=== PATIENT | female | born 1985 | race Caucasian/White ===

== ENCOUNTER 2018-01-13 07:01 | Inpatient (IN) | payer BC ==
[2018-01-13] MEDS ORDERED: Ondansetron 4 MG/2 ML SDV IVPUSH PRN ×2 (08:12→11:15)
[2018-01-13] MEDS ORDERED: Nalbuphine 20 MG/1 ML Amp IVPUSH PRN (08:12)
[2018-01-13] MEDS ORDERED: Sodium Chloride 0.9% 10 ML Syringe FLUSH PRN (08:12)
--- NOTE | 2018-01-13 10:43 | PCM.LDHP ---
L&D History of Present Illness - General Date of Service: 01/13/18 Admit Problem/Dx: Patient Status Order with Admit Dx/Problem 01/13/18 08:12 Patient Status [ADT] Routine Admission Diagnosis/Problem Admission Diagnosis/Problem Normal DATE OF ADMISSION: 01/13/2018 ADMISSION DIAGNOSES: A 40 and 4/7th week intrauterine , elective induction of labor HISTORY OF PRESENT ILLNESS: This patient is a 32 year old, 2, para 1-0-0-1 female who was admitted at 40 and 4/7ths weeks gestational age with an ASHANTI of 01/09/2018 for elective induction of labor. She is Rh negative and will require Rhogam administration. LIBRARY SERIALS ASSISTANT HISTORY: 3, para 1-0-0-1. The patient has an ASHANTI of 01/09/2018 as confirmed by early ultrasound dating performed at 11 and 2/7ths weeks. LMP was unknown due to lack of monthly menses, but was achieved by IVF and expected ASHANTI initially set by horse show manager. Patient was not using any control at the time of conception. A second ultrasound was performed on 2017 at 21 weeks which was consistent with previously set ASHANTI. The patient was first seen for care on 06/19/2018 at 10 and 6/7ths weeks gestational age. She was seen on a regular basis throughout the duration of the . Her weight gain was approximately 16 pounds, starting with a pregravid weight of 154 pounds and with a recorded weight of 170 pounds at the last visit. Her vital signs have remained stable throughout the and fundal height growth has been appropriate. The patient declined genetic testing. She plans on . She is group B Strep negative. She plans on doing a natural labor. She is Rh negative. PAST OBSTETRIC HISTORY: Male born on 09/26/2012 at 41 weeks gestational age after 12 hours of labor - 7 pounds, 3 ounces - via normal spontaneous vaginal delivery with the use of an epidural. Child's name is Jesse. LABORATORY TESTING: Initial testing shows blood to be O negative with a negative antibody screen. Hemoglobin at first visit was 13.5 g/dL and platelets at 240,000. Pap smear was normal. Rubella titer showed immunity. RPR was nonreactive. Urine culture was negative. HIV and Hepatitis B assays were both negative. Chlamydia and gonorrhea assays were both negative. Second trimester testing showed hemoglobin to be 11.7 g/dL and platelets at 211,000. Her 1 hour GGT was normal at 87. Group B Strep screen was negative. ALLERGIES: Penicillin - resulting in hives CURRENT MEDICATIONS: 1. vitamins x1 daily 2. Calcium 600 mg x1 daily 3. Zantac 150 Maximum Strength tablets x1 daily 4. Vitamin D3 2000 Units x1 daily 5. DHA [place] 3 100 mg x1 daily PAST MEDICAL HISTORY: 1. Vaginal delivery x1 2. Unknown infertility 3. History of ASCUS seen on pap in 2015 PAST SURGICAL HISTORY: 1. IVF extraction in 2017 FAMILY HISTORY: Mother is alive and healthy. Father is alive and healthy. One sibling is alive and healthy. MGM is secondary to Alzheimers. MGF has dementia and a history of a CVA. PGM is secondary to Alzheimers. PGF is alive and healthy. No bleeding, clotting, anesthesia, or problems noted in the family. Father of baby has a niece born with an atrial septal defect. SOCIAL HISTORY: The patient is . is Musa Juarez. They live in [place], [place]. She is a college graduate and works at [employer]. She does not use alcohol, drugs, or tobacco. REVIEW OF SYSTEMS: GENERAL: Patient is doing well. Baby has been active. No concerns at this time. SKIN: Negative. CARDIOVASCULAR: No chest pain or exercise intolerance. RESPIRATORY: No shortness of breath or infectious symptoms. BREASTS: Changes associated with . Patient plans to breastfeed. GASTROINTESTINAL: Negative. GENITOURINARY: Changes associated with . MUSCULOSKELETAL: Negative. NEUROLOGIC: Negative. PHYSICAL EXAMINATION: GENERAL: Patient is a well-developed, well-nourished, pleasant female who appears her stated age and in no acute distress. VITAL SIGNS: Blood pressure on last evaluation in the clinic was 108/65, weight was 170.2 after a weight gain of 16 pounds throughout the . heart rate was 147. Height is 5 feet, 2 inches. SKIN: Warm and dry without lesions. HEENT, NECK, BACK: Within normal limits. CARDIOVASCULAR: Regular rate and rhythm without murmurs. RESPIRATORY: Clear with good breath sounds in all lung ribera. BREASTS: Deferred at this time having been done at initial obstetric visit and found to be normal. ABDOMEN: Protuberant with with a fundal height of 39 cm. Baby is in vertex presentation by Agapito maneuvers. GENITAL: Shows cervix to be 3-4cm, 90% effaced, soft, -2 station, and mid position. EXTREMITIES: Shows trace edema to be present. NEUROLOGIC: Grossly within normal limits. ASSESSMENT: 1. A 40 and 4/7ths week intrauterine who presents to L and D for elective induction of labor. 2. Rh negative. Negative antibodies on blood screen. Rhogam administered on . 3. Group B Strep screen is negative. 4. The patient plans to breastfeed. 5. Rubella titer shows immunity. 6. The patient desires a natural labor. PLAN: 1. Artificial rupture of membranes and Pitocin induction of labor. 2. Consider administration of Rhogam after delivery as per protocol. 3. Support decision. 4. Natural labor or pain control as desired by the patient. - Related Data Allergies/Adverse Reactions: Allergies Allergy/AdvReac Type Severity Reaction Status Date / Time Penicillins Allergy Rash Verified 09/21/15 14:07 Past Medical History LIBRARY SERIALS ASSISTANT History: Reports: Social & Family History - Family History Family Medical History: Noncontributory - Tobacco Use Smoking Status *Q: Never Smoker Second Hand Smoke Exposure: No - Caffeine Use Caffeine Use: Reports: None - Recreational Drug Use Recreational Drug Use: No H&P Review of Systems - Review of Systems: Review Of Systems: See Below L&D Exam - Exam Exam: See Below - Vital Signs Vital Signs: Last Vital Signs Temp 98.9 F 01/13/18 08:12 Pulse 94 01/13/18 08:12 Resp 16 01/13/18 08:12 BP 113/77 01/13/18 08:12 Pulse Ox 98 01/13/18 08:12 Weight: 170 lb - Patient Data Lab Results Last 24 hrs: Laboratory Results - last 24 hr 01/13/18 Range/Units 08:00 WBC 9.17 (3.98-10.04) K/mm3 RBC 4.04 (3.98-5.22) M/mm3 Hgb 12.2 (11.2-15.7) gm/L Hct 36.8 (34.1-44.9) % MCV 91.1 (79.4-94.8) fl MCH 30.2 (25.6-32.2) pg MCHC 33.2 (32.2-35.5) g/dl RDW Std Deviation 44.2 (36.4-46.3) fL Plt Count 183 (182-369) K/mm3 MPV 10.4 (9.4-12.3) fl Neut % (Auto) 70.4 (34.0-71.1) % Lymph % (Auto) 19.7 (19.3-51.7) % [place] % (Auto) 8.1 (4.7-12.5) % Eos % (Auto) 0.8 (0.7-5.8) Baso % (Auto) 0.2 (0.1-1.2) % Neut # (Auto) 6.46 H (1.56-6.13) K/mm3 Lymph # (Auto) 1.81 (1.18-3.74) K/mm3 [place] # (Auto) 0.74 H (0.24-0.36) K/mm3 Eos # (Auto) 0.07 (0.04-0.36) K/mm3 Baso # (Auto) 0.02 (0.01-0.08) K/mm3 Result Diagrams: 01/13/18 08:00 Problem List Initiated/Reviewed/Updated: Yes Orders Last 24hrs: Active Orders 24 hr Category Date Time Status Patient Status [ADT] Routine ADT 01/13/18 08:12 Active Activity as Tolerated [RC] PFP Care 01/13/18 08:12 Active Communication Order [RC] ASDIRECTED Care 01/13/18 08:12 Active Notify Provider [RC] PFP Care 01/13/18 08:12 Active Notify Provider [RC] PRN Care 01/13/18 08:12 Active Peripheral IV Care [RC] . DIRECTED Care 01/13/18 08:13 Active Pump Management, Intrathecal [RC] ASDIRECTED Care 01/13/18 08:13 Active Vital Signs [RC] PER UNIT ROUTINE Care 01/13/18 08:12 Active Regular Diet [DIET] Diet 01/13/18 Breakfast Active Lactated Ringers [Ringers, Lactated] 1,000 ml Med 01/13/18 08:15 Active IV ASDIRECTED Lidocaine 1% [Xylocaine 1%] Med 01/13/18 12:00 Once 10 ml INJECT ONETIME ONE Nalbuphine [Nubain] Med 01/13/18 08:12 Active 10 mg IVPUSH Q2H PRN Ondansetron [Zofran] Med 01/13/18 08:12 Active 4 mg IVPUSH Q4H PRN Sodium Chloride 0.9% [Saline Flush] Med 01/13/18 08:12 Active 10 ml FLUSH ASDIRECTED PRN Electronic Heart Tones Ext w TOCO [WOMSER] Oth 01/13/18 08:12 Ordered Routine Electronic Heart Tones Internal [WOMSER] Per Unit Oth 01/13/18 08:12 Ordered Routine Peripheral IV Insertion Adult [OM.PC] Routine Oth 01/13/18 08:12 Ordered Resuscitation Status Routine Resus Stat 01/13/18 08:12 Ordered Medication Orders Lactated Ringer's (Ringers, Lactated) 1,000 mls @ 100 mls/hr IV ASDIRECTED LITZY Lidocaine HCl (Xylocaine 1%) 10 ml INJECT ONETIME ONE Stop: 01/13/18 12:01 Nalbuphine HCl (Nubain) 10 mg IVPUSH Q2H PRN PRN Reason: Pain (moderate 4-6) Ondansetron HCl (Zofran) 4 mg IVPUSH Q4H PRN PRN Reason: Nausea/Vomiting Sodium Chloride (Saline Flush) 10 ml FLUSH ASDIRECTED PRN PRN Reason: Keep Vein Open
[2018-01-13] MEDS ORDERED: Oxytocin/Lactated Ringers 10 UNIT/1,000 ML BAG IV SCH (10:45)
[2018-01-13] MEDS ORDERED: ePHEDrine 50 MG/ML SDV IVPUSH PRN (11:15)
[2018-01-13] MEDS ORDERED: Bupivacaine/fentaNYL/NS 100 ML Bag EPIDUR SCH (11:15)
[2018-01-13] MEDS ORDERED: diphenhydrAMINE 50 MG/ML SDV IVPUSH PRN (11:15)
[2018-01-13] MEDS ORDERED: fentaNYL 100 MCG/2 ML SDV EPIDUR PRN (11:15)
--- NOTE | 2018-01-13 11:27 | PCM.PREANE ---
Preanesthetic Assessment - Anesthesia/Transfusion/Family Hx Anesthesia History: Prior Anesthesia Without Reaction Family History of Anesthesia Reaction: No Transfusion History: No Prior Transfusion(s) - Review of Systems General: No Symptoms Pulmonary: No Symptoms Cardiovascular: No Symptoms Gastrointestinal: No Symptoms Neurological: No Symptoms Other: Reports: None - Physical Assessment O2 Sat by Pulse Oximetry: 98 Respiratory Rate: 16 Vital Signs: Last Vital Signs Temp 37.2 C 01/13/18 08:12 Pulse 94 01/13/18 08:12 Resp 16 01/13/18 08:12 BP 113/77 01/13/18 08:12 Pulse Ox 98 01/13/18 08:12 Height: 1.57 m Weight: 77.111 kg ASA Class: 2 Mental Status: Alert & Oriented x3 Airway Class: Mallampati = 1 Dentition: Reports: Normal Dentition Thyro-Mental Finger Breadths: 3 Mouth Opening Finger Breadths: 3 ROM/Head Extension: Full Lungs: Clear to Auscultation, Normal Respiratory Effort Cardiovascular: Regular Rate, Regular Rhythm - Lab Values: Laboratory Last Values WBC 9.17 K/mm3 (3.98-10.04) 01/13/18 08:00 RBC 4.04 M/mm3 (3.98-5.22) 01/13/18 08:00 Hgb 12.2 gm/L (11.2-15.7) 01/13/18 08:00 Hct 36.8 % (34.1-44.9) 01/13/18 08:00 MCV 91.1 fl (79.4-94.8) 01/13/18 08:00 MCH 30.2 pg (25.6-32.2) 01/13/18 08:00 MCHC 33.2 g/dl (32.2-35.5) 01/13/18 08:00 RDW Std Deviation 44.2 fL (36.4-46.3) 01/13/18 08:00 Plt Count 183 K/mm3 (182-369) 01/13/18 08:00 MPV 10.4 fl (9.4-12.3) 01/13/18 08:00 Neut % (Auto) 70.4 % (34.0-71.1) 01/13/18 08:00 Lymph % (Auto) 19.7 % (19.3-51.7) 01/13/18 08:00 [place] % (Auto) 8.1 % (4.7-12.5) 01/13/18 08:00 Eos % (Auto) 0.8 (0.7-5.8) 01/13/18 08:00 Baso % (Auto) 0.2 % (0.1-1.2) 01/13/18 08:00 Neut # (Auto) 6.46 K/mm3 (1.56-6.13) H 01/13/18 08:00 Lymph # (Auto) 1.81 K/mm3 (1.18-3.74) 01/13/18 08:00 [place] # (Auto) 0.74 K/mm3 (0.24-0.36) H 01/13/18 08:00 Eos # (Auto) 0.07 K/mm3 (0.04-0.36) 01/13/18 08:00 Baso # (Auto) 0.02 K/mm3 (0.01-0.08) 01/13/18 08:00 - Allergies Allergies/Adverse Reactions: Allergies Allergy/AdvReac Type Severity Reaction Status Date / Time Penicillins Allergy Rash Verified 09/21/15 14:07 - Acknowledgements Anesthesia Type Planned: Epidural Pt an Appropriate Candidate for the Planned Anesthesia: Yes Alternatives and Risks of Anesthesia Discussed w Pt/Guardian: Yes Pt/Guardian Understands and Agrees with Anesthesia Plan: Yes PreAnesthesia Questionnaire ACID TENDER History: Reports: - SUBSTANCE USE Smoking Status *Q: Never Smoker Tobacco Use Within Last Twelve Months: No Second Hand Smoke Exposure: No Recreational Drug Use History: No - CURRENT (IN HOUSE) MEDS Current Meds: Current Medications Diphenhydramine HCl (Benadryl) 25 mg IVPUSH Q6H PRN PRN Reason: Pruritis Ephedrine Sulfate (Ephedrine Sulfate) 5 mg IVPUSH ASDIRECTED PRN PRN Reason: Hypotension Fentanyl (Sublimaze) 100 mcg EPIDUR ONETIME PRN PRN Reason: Pain Fentanyl/Bupivacaine HCl (Fentanyl/Bupivacaine/Ns 2 Mcg-0.125% 100 Ml) 100 ml EPIDUR ASDIRECTED LITZY Lactated Ringer's (Ringers, Lactated) 1,000 mls @ 100 mls/hr IV ASDIRECTED LITZY Oxytocin/Lactated Ringer's (Pitocin In Lr 10 Units/1,000 Ml) 10 unit in 1,000 mls @ 12 mls/hr IV TITRATE LITZY; Protocol Lidocaine HCl (Xylocaine 1%) 10 ml INJECT ONETIME ONE Stop: 01/13/18 12:01 Nalbuphine HCl (Nubain) 10 mg IVPUSH Q2H PRN PRN Reason: Pain (moderate 4-6) Ondansetron HCl (Zofran) 4 mg IVPUSH Q4H PRN PRN Reason: Nausea/Vomiting Ondansetron HCl (Zofran) 4 mg IVPUSH ONETIME PRN PRN Reason: Nausea/Vomiting Sodium Chloride (Saline Flush) 10 ml FLUSH ASDIRECTED PRN PRN Reason: Keep Vein Open
[2018-01-13] MEDS: Lactated Ringers 1,000 ML IV SCH ×2 (11:30→14:26)
[2018-01-13] MEDS ORDERED: Lidocaine 1% 50 ML MDV INJECT ONE (12:00)
[2018-01-13] MEDS ORDERED: Bupivacaine 0.25% 10 ML SDV ONE (18:00)
[2018-01-13] MEDS ORDERED: Docusate Sodium 100 MG Cap PO PRN (19:31)
[2018-01-13] MEDS ORDERED: Lanolin 100% Cream 7 GM Tube TOP PRN (19:31)
[2018-01-13] MEDS ORDERED: Acetaminophen 325 MG Tab PO PRN (19:31)
[2018-01-13] MEDS ORDERED: Benzocaine/Menthol 20%-0.5% Spray 56 GM Canister TOP PRN (19:31)
[2018-01-13] MEDS: Misoprostol 200 MCG Tab PO SCH ×2 (19:48→23:39)
[2018-01-13] MEDS: Witch Hazel Medicated Pads 100/Jar TOP PRN (21:20)
[2018-01-13] MEDS: Ibuprofen 600 MG Tab PO PRN (21:21)
[2018-01-14] MEDS: Ibuprofen 600 MG Tab PO PRN ×4 (02:12→21:52)
--- NOTE | 2018-01-14 05:47 | PCM.SN ---
- Free Text/Narrative Note: Delivery note: Jena is a 32-year-old 2 now para 2002 white female was admitted for elective induction of labor on 01/13/2018 at 40-3/7 weeks gestational age. She underwent artificial rupture of membranes with resultant clear fluid. She was augmented with Pitocin somewhat later, made steady progress of dilation and became completely dilated at approximately 1515 hrs. on 01/13/2018. She pushed for approximately 1-1/2 hours. Baby's head was descending in a somewhat asynclitic fashion. Was most probable reason for extended second stage of labor. heart tones were reassuring. She delivered a viable, blackwell, male infant with Apgars of 8 and 9, a weight of 3650 g (8 pounds 0.7 ounces), a length of 21.5 inches a left occiput anterior position. The perineum was intact. The baby was placed on mom's abdomen. The cord was clamped 2 and then was cut by the baby's father Musa. Pitocin was administered through the IV afterwards consulting increased uterine tone and decreased likelihood of bleeding. The umbilical cord had 3 vessels. Cord blood was obtained. Patient had moderate bleeding afterwards and was administered Cytotec 2 doses . Assessment blood loss was 400 mL's. Patient is planning to breast-feed. Condition: Good
--- NOTE | 2018-01-14 08:22 | PCM48HPAN ---
Post Anesthesia Note - EVALUATION WITHIN 48HRS OF ANESTHETIC Vital Signs in Normal Range: Yes Patient Participated in Evaluation: Yes Respiratory Function Stable: Yes Airway Patent: Yes Cardiovascular Function Stable: Yes Hydration Status Stable: Yes Pain Control Satisfactory: Yes Nausea and Vomiting Control Satisfactory: Yes Mental Status Recovered: Yes
[2018-01-14] MEDS: Prenatal Multivitamin with Calcium/Folic Acid/Iron Tab PO SCH (09:59)
[2018-01-14] MEDS: Witch Hazel Medicated Pads 100/Jar TOP PRN (18:12)
--- NOTE | 2018-01-14 19:07 | PCM.PNPP ---
- General Info Admission Dx/Problem (Free Text): 01/14/2018 Post Day #1 Subjective: Patient is doing well. She has tolerated a regular diet and is ambulating without difficulty. Pain is well controlled at this time. Lochia described as a moderate amount of discharge, but improved from last night after Cytotec administration. Patient is . Objective: Vitals: Vital Signs - 24 hr 01/13/18 01/14/18 01/14/18 19:48 02:11 02:14 Temperature 98.1 F 98.1 F 98.1 F Pulse, 82 95 Peripheral Pulse, 96 Peripheral [ Brachial] Respiratory 16 16 16 Rate Blood Pressure 104/66 104/68 Blood Pressure 104/68 [Upper Arm] O2 Sat by Pulse 97 93 L Oximetry Physical Exam General: Alert, oriented and in no acute distress Lungs: Clear to auscultation bilaterally Heart: Regular rate and rhythm Abdomen: Soft, non-distended, nontender, and fundus palpated below the umbilicus Extremities: Trace edema ASSESSMENT: 32-year-old female 2, now para 2-0-0-2 with a normal spontaneous vaginal delivery on 01/13/2018 at 40 and 3/7ths weeks gestational age, day #1 PLAN: Doing well with no concerns at this time Continue breast feeding Lochia appropriate, but continue to monitor bleeding Continue routine care Discharge home tomorrow - Patient Data Vital Signs - Most Recent: Last Vital Signs Temp 98.1 F 01/14/18 02:14 Pulse 96 01/14/18 02:14 Resp 16 01/14/18 02:14 BP 104/68 01/14/18 02:14 Pulse Ox 93 L 01/14/18 02:11 Weight - Most Recent: 170 lb I&O - Last 24 Hours: Intake & Output 01/14/18 01/14/18 01/14/18 06:59 14:59 22:59 Intake Total 2 120 0 Balance 2 120 0 Lab Results - Last 24 Hours: Laboratory Results - last 24 hr 01/13/18 01/14/18 Range/Units 22:04 05:00 WBC 14.66 H (3.98-10.04) K/mm3 RBC 3.24 L (3.98-5.22) M/mm3 Hgb 9.9 L (11.2-15.7) gm/L Hct 29.9 L (34.1-44.9) % MCV 92.3 (79.4-94.8) fl MCH 30.6 (25.6-32.2) pg MCHC 33.1 (32.2-35.5) g/dl RDW Std Deviation 43.6 (36.4-46.3) fL Plt Count 161 L (182-369) K/mm3 MPV 10.5 (9.4-12.3) fl Blood Type O NEGATIVE Gel Antibody Screen Negative Screen 0 ros/5 flds - neg RhIG Candidate? Yes Rhogam Indicated Yes, baby rh pos H Med Orders - Current: Current Medications Acetaminophen (Tylenol) 650 mg PO Q4H PRN PRN Reason: mild pain or fever Benzocaine/Menthol (Dermoplast Pain Relief [place]) 0 gm TOP ASDIRECTED PRN PRN Reason: Perineal Comfort Measure Last Admin: 01/13/18 21:21 Dose: 1 can Docusate Sodium (Colace) 100 mg PO BID PRN PRN Reason: Constipation Emollient Ointment (Lansinoh Hpa) 0 gm TOP ASDIRECTED PRN PRN Reason: Sore Nipples Last Admin: 01/13/18 21:24 Dose: 1 tube Ibuprofen (Motrin) 600 mg PO Q4H PRN PRN Reason: Mild pain or fever Last Admin: 01/14/18 17:55 Dose: 600 mg Prenat Multivit/[place]/Iron/Folic Ac ( Plus Iron) 1 each PO DAILY [facility] Last Admin: 01/14/18 09:59 Dose: 1 each Witch Ese (Tucks) 1 pad TOP ASDIRECTED PRN PRN Reason: Hemorrhoid pain Last Admin: 01/14/18 18:12 Dose: 1 tub Discontinued Medications Diphenhydramine HCl (Benadryl) 25 mg IVPUSH Q6H PRN PRN Reason: Pruritis Ephedrine Sulfate (Ephedrine Sulfate) 5 mg IVPUSH ASDIRECTED PRN PRN Reason: Hypotension Fentanyl (Sublimaze) 100 mcg EPIDUR ONETIME PRN PRN Reason: Pain Last Admin: 01/13/18 14:11 Dose: 100 mcg Fentanyl/Bupivacaine HCl (Fentanyl/Bupivacaine/Ns 2 Mcg-0.125% 100 Ml) 100 ml EPIDUR ASDIRECTED [facility] Last Admin: 01/13/18 14:12 Dose: 100 ml Lactated Ringer's (Ringers, Lactated) 1,000 mls @ 100 mls/hr IV ASDIRECTED LITZY Last Admin: 01/13/18 14:26 Dose: 100 mls/hr Oxytocin/Lactated Ringer's (Pitocin In Lr 10 Units/1,000 Ml) 10 unit in 1,000 mls @ 12 mls/hr IV TITRATE LITZY; Protocol Last Titration: 01/13/18 12:00 Dose: 4 munits/min, 24 mls/hr Lidocaine HCl (Xylocaine 1%) 10 ml INJECT ONETIME ONE Stop: 01/13/18 12:01 Last Admin: 01/13/18 23:26 Dose: Not Given Misoprostol (Cytotec) 400 mcg PO Q4H LITZY Stop: 01/13/18 23:36 Last Admin: 01/13/18 23:39 Dose: 400 mcg Nalbuphine HCl (Nubain) 10 mg IVPUSH Q2H PRN PRN Reason: Pain (moderate 4-6) Ondansetron HCl (Zofran) 4 mg IVPUSH Q4H PRN PRN Reason: Nausea/Vomiting Ondansetron HCl (Zofran) 4 mg IVPUSH ONETIME PRN PRN Reason: Nausea/Vomiting Sodium Chloride (Saline Flush) 10 ml FLUSH ASDIRECTED PRN PRN Reason: Keep Vein Open - Interaction Support Person: - Recovery Exam Fundal Tone: Firm Fundal Level: At Umbilicus Fundal Placement: Midline Lochia Amount: Small, Moderate Lochia Color: Rubra/Red Perineum Description: Intact, Minimal Bruising/Swelling Episiotomy/Laceration: None Bladder Status: Voiding - Problem List Review Problem List Initiated/Reviewed/Updated: Yes
[2018-01-15] MEDS: Ibuprofen 600 MG Tab PO PRN (07:44)
--- NOTE | 2018-01-15 08:24 | PCM.PNPP ---
Addendum entered and electronically signed by EleazarMichael L 01/15/18 08:37: Of note: This note was written on 01/15/2018 and as per the assessment, she is day #2. Original Note: <Michael Bush - Last Filed: 01/15/18 08:16> - General Info Admission Dx/Problem (Free Text): 01/14/2018 Post Day #2 Subjective: Patient is doing well. She has tolerated a regular diet without concern. She is ambulating and showering without difficulty. Pain is well controlled with Ibuprofen at this time. Lochia minimal. Patient describes passage of one large clot last night, but the flow of bright red blood has been appropriate. Patient is without difficulty. Objective: Vitals: Vital Signs 01/15/18 01/15/18 04:38 07:38 Temperature 98.1 F 98.2 F Pulse, 65 Peripheral Respiratory 15 16 Rate Blood Pressure 104/73 101/84 O2 Sat by Pulse 98 Oximetry Physical Exam General: Alert, oriented and in no acute distress Lungs: Clear to auscultation bilaterally Heart: Regular rate and rhythm Abdomen: Soft, non-distended, nontender, and fundus palpated at the umbilicus Extremities: Trace edema ASSESSMENT: 32-year-old female 2, now para 2-0-0-2 with a normal spontaneous vaginal delivery on 01/13/2018 at 40 and 3/7ths weeks gestational age, day #1 PLAN: Doing well with no concerns at this time Continue breast feeding Lochia appropriate, but continue to monitor bleeding Continue routine care Discharge home today, return to clinic in 2 weeks Continue to take vitamins with additional calcium supplementation Consider adding iron supplements to compensate for Hgb of 9.9 g/dL - Patient Data Vital Signs - Most Recent: Last Vital Signs Temp 98.1 F 01/15/18 04:38 Pulse 65 01/15/18 04:38 Resp 15 01/15/18 04:38 BP 104/73 01/15/18 04:38 Pulse Ox 98 01/15/18 04:38 Weight - Most Recent: 77.111 kg I&O - Last 24 Hours: Intake & Output 01/14/18 01/15/18 01/15/18 22:59 06:59 14:59 Intake Total 0 Balance 0 Med Orders - Current: Current Medications Acetaminophen (Tylenol) 650 mg PO Q4H PRN PRN Reason: mild pain or fever Benzocaine/Menthol (Dermoplast Pain Relief [place]) 0 gm TOP ASDIRECTED PRN PRN Reason: Perineal Comfort Measure Last Admin: 01/13/18 21:21 Dose: 1 can Docusate Sodium (Colace) 100 mg PO BID PRN PRN Reason: Constipation Emollient Ointment (Lansinoh Hpa) 0 gm TOP ASDIRECTED PRN PRN Reason: Sore Nipples Last Admin: 01/13/18 21:24 Dose: 1 tube Ibuprofen (Motrin) 600 mg PO Q4H PRN PRN Reason: Mild pain or fever Last Admin: 01/15/18 07:44 Dose: 600 mg Prenat Multivit/[place]/Iron/Folic Ac ( Plus Iron) 1 each PO DAILY [facility] Last Admin: 01/14/18 09:59 Dose: 1 each Witch Ese (Tucks) 1 pad TOP ASDIRECTED PRN PRN Reason: Hemorrhoid pain Last Admin: 01/14/18 18:12 Dose: 1 tub Discontinued Medications Bupivacaine HCl (Sensorcaine-Mpf 0.25%) 10 ml .ROUTE .STK-MED ONE Stop: 01/13/18 18:01 Diphenhydramine HCl (Benadryl) 25 mg IVPUSH Q6H PRN PRN Reason: Pruritis Ephedrine Sulfate (Ephedrine Sulfate) 5 mg IVPUSH ASDIRECTED PRN PRN Reason: Hypotension Fentanyl (Sublimaze) 100 mcg EPIDUR ONETIME PRN PRN Reason: Pain Last Admin: 01/13/18 14:11 Dose: 100 mcg Fentanyl/Bupivacaine HCl (Fentanyl/Bupivacaine/Ns 2 Mcg-0.125% 100 Ml) 100 ml EPIDUR ASDIRECTED [facility] Last Admin: 01/13/18 14:12 Dose: 100 ml Lactated Ringer's (Ringers, Lactated) 1,000 mls @ 100 mls/hr IV ASDIRECTED [facility] Last Admin: 01/13/18 14:26 Dose: 100 mls/hr Oxytocin/Lactated Ringer's (Pitocin In Lr 10 Units/1,000 Ml) 10 unit in 1,000 mls @ 12 mls/hr IV TITRATE [facility]; Protocol Last Titration: 01/13/18 12:00 Dose: 4 munits/min, 24 mls/hr Lidocaine HCl (Xylocaine 1%) 10 ml INJECT ONETIME ONE Stop: 01/13/18 12:01 Last Admin: 01/13/18 23:26 Dose: Not Given Misoprostol (Cytotec) 400 mcg PO Q4H [facility] Stop: 01/13/18 23:36 Last Admin: 01/13/18 23:39 Dose: 400 mcg Nalbuphine HCl (Nubain) 10 mg IVPUSH Q2H PRN PRN Reason: Pain (moderate 4-6) Ondansetron HCl (Zofran) 4 mg IVPUSH Q4H PRN PRN Reason: Nausea/Vomiting Ondansetron HCl (Zofran) 4 mg IVPUSH ONETIME PRN PRN Reason: Nausea/Vomiting Sodium Chloride (Saline Flush) 10 ml FLUSH ASDIRECTED PRN PRN Reason: Keep Vein Open - Interaction Support Person: - Recovery Exam Fundal Tone: Firm Fundal Level: 1 Fingerbreadths Below Umbilicus Fundal Placement: Midline Lochia Amount: Small Lochia Color: Rubra/Red Perineum Description: Intact, Minimal Bruising/Swelling Episiotomy/Laceration: None Bladder Status: Voiding - Problem List Review Problem List Initiated/Reviewed/Updated: Yes <Mahin Lay - Last Filed: 01/15/18 08:50> - General Info Date of Service: 01/15/18 Admission Dx/Problem (Free Text): I have seen and evaluated patient with student and agree with the above note. I have reviewed the addendum is entered by the student and agree with changes made. Patient doing well and anticipate discharge home today. She is return to clinic in 2 weeks or earlier as needed. She should consider iron supplementation for mild anemia. Mahin Lay M.D. 8:50 AM 01/15/2018 Functional Status: Reports: Pain Controlled, Tolerating Diet, Ambulating, Urinating - Patient Data Vital Signs - Most Recent: Last Vital Signs Temp 36.8 C 01/15/18 07:38 Pulse 65 01/15/18 04:38 Resp 16 01/15/18 07:38 BP 101/84 01/15/18 07:38 Pulse Ox 98 01/15/18 04:38 I&O - Last 24 Hours: Intake & Output 01/14/18 01/15/18 01/15/18 22:59 06:59 14:59 Intake Total 120 Balance 120 Med Orders - Current: Current Medications Acetaminophen (Tylenol) 650 mg PO Q4H PRN PRN Reason: mild pain or fever Benzocaine/Menthol (Dermoplast Pain Relief [place]) 0 gm TOP ASDIRECTED PRN PRN Reason: Perineal Comfort Measure Last Admin: 01/13/18 21:21 Dose: 1 can Docusate Sodium (Colace) 100 mg PO BID PRN PRN Reason: Constipation Emollient Ointment (Lansinoh Hpa) 0 gm TOP ASDIRECTED PRN PRN Reason: Sore Nipples Last Admin: 01/13/18 21:24 Dose: 1 tube Ibuprofen (Motrin) 600 mg PO Q4H PRN PRN Reason: Mild pain or fever Last Admin: 01/15/18 07:44 Dose: 600 mg Prenat Multivit/[place]/Iron/Folic Ac ( Plus Iron) 1 each PO DAILY [facility] Last Admin: 01/14/18 09:59 Dose: 1 each Witch Ese (Tucks) 1 pad TOP ASDIRECTED PRN PRN Reason: Hemorrhoid pain Last Admin: 01/14/18 18:12 Dose: 1 tub Discontinued Medications Bupivacaine HCl (Sensorcaine-Mpf 0.25%) 10 ml .ROUTE .STK-MED ONE Stop: 01/13/18 18:01 Diphenhydramine HCl (Benadryl) 25 mg IVPUSH Q6H PRN PRN Reason: Pruritis Ephedrine Sulfate (Ephedrine Sulfate) 5 mg IVPUSH ASDIRECTED PRN PRN Reason: Hypotension Fentanyl (Sublimaze) 100 mcg EPIDUR ONETIME PRN PRN Reason: Pain Last Admin: 01/13/18 14:11 Dose: 100 mcg Fentanyl/Bupivacaine HCl (Fentanyl/Bupivacaine/Ns 2 Mcg-0.125% 100 Ml) 100 ml EPIDUR ASDIRECTED [facility] Last Admin: 01/13/18 14:12 Dose: 100 ml Lactated Ringer's (Ringers, Lactated) 1,000 mls @ 100 mls/hr IV ASDIRECTED [facility] Last Admin: 01/13/18 14:26 Dose: 100 mls/hr Oxytocin/Lactated Ringer's (Pitocin In Lr 10 Units/1,000 Ml) 10 unit in 1,000 mls @ 12 mls/hr IV TITRATE [facility]; Protocol Last Titration: 01/13/18 12:00 Dose: 4 munits/min, 24 mls/hr Lidocaine HCl (Xylocaine 1%) 10 ml INJECT ONETIME ONE Stop: 01/13/18 12:01 Last Admin: 01/13/18 23:26 Dose: Not Given Misoprostol (Cytotec) 400 mcg PO Q4H [facility] Stop: 01/13/18 23:36 Last Admin: 01/13/18 23:39 Dose: 400 mcg Nalbuphine HCl (Nubain) 10 mg IVPUSH Q2H PRN PRN Reason: Pain (moderate 4-6) Ondansetron HCl (Zofran) 4 mg IVPUSH Q4H PRN PRN Reason: Nausea/Vomiting Ondansetron HCl (Zofran) 4 mg IVPUSH ONETIME PRN PRN Reason: Nausea/Vomiting Sodium Chloride (Saline Flush) 10 ml FLUSH ASDIRECTED PRN PRN Reason: Keep Vein Open
--- NOTE | 2018-01-15 09:02 | PCM.DCSUM1 ---
Discharge Summary - Hospital Course Free Text/Narrative:: Delivery note: Jena is a 32-year-old 2 now para 2002 white female was admitted for elective induction of labor on 01/13/2018 at 40-3/7 weeks gestational age. She underwent artificial rupture of membranes with resultant clear fluid. She was augmented with Pitocin somewhat later, made steady progress of dilation and became completely dilated at approximately 1515 hrs. on 01/13/2018. She pushed for approximately 1-1/2 hours. Baby's head was descending in a somewhat asynclitic fashion. Was most probable reason for extended second stage of labor. heart tones were reassuring. She delivered a viable, blackwell, male infant with Apgars of 8 and 9, a weight of 3650 g (8 pounds 0.7 ounces), a length of 21.5 inches a left occiput anterior position. The perineum was intact. The baby was placed on mom's abdomen. The cord was clamped 2 and then was cut by the baby's father Musa. Pitocin was administered through the IV afterwards consulting increased uterine tone and decreased likelihood of bleeding. The umbilical cord had 3 vessels. Cord blood was obtained. Patient had moderate bleeding afterwards and was administered Cytotec 2 doses . Assessment blood loss was 400 mL's. Patient is planning to breast-feed. Condition: Good HPI Initial Comments: Delivery note: Jena is a 32-year-old 2 now para 2002 white female was admitted for elective induction of labor on 01/13/2018 at 40-3/7 weeks gestational age. She underwent artificial rupture of membranes with resultant clear fluid. She was augmented with Pitocin somewhat later, made steady progress of dilation and became completely dilated at approximately 1515 hrs. on 01/13/2018. She pushed for approximately 1-1/2 hours. Baby's head was descending in a somewhat asynclitic fashion. Was most probable reason for extended second stage of labor. heart tones were reassuring. She delivered a viable, blackwell, male infant with Apgars of 8 and 9, a weight of 3650 g (8 pounds 0.7 ounces), a length of 21.5 inches a left occiput anterior position. The perineum was intact. The baby was placed on mom's abdomen. The cord was clamped 2 and then was cut by the baby's father Musa. Pitocin was administered through the IV afterwards consulting increased uterine tone and decreased likelihood of bleeding. The umbilical cord had 3 vessels. Cord blood was obtained. Patient had moderate bleeding afterwards and was administered Cytotec 2 doses . Assessment blood loss was 400 mL's. Patient is planning to breast-feed. Condition: Good Brief History: Delivery note: Jena is a 32-year-old 2 now para 2002 white female was admitted for elective induction of labor on 01/13/2018 at 40-3/7 weeks gestational age. She underwent artificial rupture of membranes with resultant clear fluid. She was augmented with Pitocin somewhat later, made steady progress of dilation and became completely dilated at approximately 1515 hrs. on 01/13/2018. She pushed for approximately 1-1/2 hours. Baby's head was descending in a somewhat asynclitic fashion. Was most probable reason for extended second stage of labor. heart tones were reassuring. She delivered a viable, blackwell, male infant with Apgars of 8 and 9, a weight of 3650 g (8 pounds 0.7 ounces), a length of 21.5 inches a left occiput anterior position. The perineum was intact. The baby was placed on mom's abdomen. The cord was clamped 2 and then was cut by the baby's father Musa. Pitocin was administered through the IV afterwards consulting increased uterine tone and decreased likelihood of bleeding. The umbilical cord had 3 vessels. Cord blood was obtained. Patient had moderate bleeding afterwards and was administered Cytotec 2 doses . Assessment blood loss was 400 mL's. Patient is planning to breast-feed. Condition: Good - Discharge Data Discharge Date: 01/15/18 Discharge Disposition: Home, Self-Care 01 Condition: Good - Discharge Diagnosis/Problem(s) (1) 40 weeks gestation of SNOMED Code(s): 77683033 ICD Code: Z3A.40 - 40 WEEKS GESTATION OF Status: Acute Current Visit: Yes (2) Rh negative state in antepartum period SNOMED Code(s): 210999894 ICD Code: O09.899 - SUPERVISION OF OTHER HIGH RISK PREGNANCIES, UNSP TRIMESTER; Z67.91 - UNSPECIFIED BLOOD TYPE, RH NEGATIVE Status: Acute Current Visit: Yes (3) conceived through in vitro fertilization SNOMED Code(s): 48363388 ICD Code: O09.819 - SUPRVSN OF PREG RSLT FROM ASSISTED REPRODCTV TECH, UNSP TRI Status: Acute Current Visit: Yes (4) Vaginal delivery SNOMED Code(s): 687582208 ICD Code: O80 - ENCOUNTER FOR FULL-TERM UNCOMPLICATED DELIVERY Status: Acute Current Visit: Yes - Patient Summary/Data Complications: None Consults: None Hospital Course: Jena Juarez was admitted for elective induction of labor. On admission her cervix was dilated to 1 cm. She was GBS negative. She was given pitocin for augmentation. She was given an epidural for anesthesia. She had artificial rupture of membranes with clear fluid. She progressed to complete and began pushing. On 01/13/2018 she had a normal vaginal delivery of a live male infant. Apgars of 8 and 9. Weight of 3650 g (8 pounds 0.7 ounces). Her course was uneventful. Her pain was well controlled and she had minimal lochia. She was ambulating, tolerating a regular diet and voiding normally. She was breast feeding. She was afebrile and her hematocrit was 29.9 on day # 1. She desired to be discharged home on the morning of PPD #2. Her blood type is O-. blood type was Rh+ and she received a dose of RhoGAM prior to discharge. - Patient Instructions Diet: Regular Diet as Tolerated Activity: As Tolerated Activity, Other: Nothing in the vagina for 6 weeks Driving: May Drive Today Showering/Bathing: May Shower Notify Provider of: Fever, Increased Pain, Swelling and Redness, Drainage, Nausea and/or Vomiting Other/Special Instructions: Notify office if you have heavy vaginal bleeding enough to soak a pad in less than an hour for 3 hours. - Discharge Plan Home Medications: Home Meds Ferrous Sulfate [Slow Fe] 1 tab PO DAILY 01/13/18 [History] PNV #116/Iron Fumarate/FA/DHA [Expecta Combo Pack] 1 each PO DAILY 12/28 [History] Acetaminophen [Tylenol] 650 mg PO Q6H PRN tablet 01/15/18 [Rx] Benzocaine/Menthol [Dermoplast Pain Relief [place]] 1 spray TOP ASDIRECTED PRN canister 01/15/18 [Rx] Docusate Sodium [Colace] 100 mg PO BID PRN cap 01/15/18 [Rx] Ibuprofen [IJD: Ibuprofen] 600 mg PO Q6H PRN tablet 01/15/18 [Rx] Lanolin [Lansinoh HPA] 1 applic TOP ASDIRECTED PRN tube 01/15/18 [Rx] Patient Handouts: Home Care Instructions for Mom, Vaginal Delivery, Care After Referrals: Aidan Garner MD [Primary Care Provider] - (Follow-up in 2 weeks or earlier as needed.) - Discharge Summary/Plan Comment DC Time >30 min.: No - Patient Data Vitals - Most Recent: Last Vital Signs Temp 36.8 C 01/15/18 07:38 Pulse 65 01/15/18 04:38 Resp 16 01/15/18 07:38 BP 101/84 01/15/18 07:38 Pulse Ox 98 01/15/18 04:38 Weight - Most Recent: 77.111 kg I&O - Last 24 hours: Intake & Output 01/14/18 01/15/18 01/15/18 22:59 06:59 14:59 Intake Total 120 Balance 120 Med Orders - Current: Current Medications Acetaminophen (Tylenol) 650 mg PO Q4H PRN PRN Reason: mild pain or fever Benzocaine/Menthol (Dermoplast Pain Relief [place]) 0 gm TOP ASDIRECTED PRN PRN Reason: Perineal Comfort Measure Last Admin: 01/13/18 21:21 Dose: 1 can Docusate Sodium (Colace) 100 mg PO BID PRN PRN Reason: Constipation Emollient Ointment (Lansinoh Hpa) 0 gm TOP ASDIRECTED PRN PRN Reason: Sore Nipples Last Admin: 01/13/18 21:24 Dose: 1 tube Ibuprofen (Motrin) 600 mg PO Q4H PRN PRN Reason: Mild pain or fever Last Admin: 01/15/18 07:44 Dose: 600 mg Prenat Multivit/[employer]/Iron/Folic Ac ( Plus Iron) 1 each PO DAILY [facility] Last Admin: 01/14/18 09:59 Dose: 1 each Witch Ese (Tucks) 1 pad TOP ASDIRECTED PRN PRN Reason: Hemorrhoid pain Last Admin: 01/14/18 18:12 Dose: 1 tub Discontinued Medications Bupivacaine HCl (Sensorcaine-Mpf 0.25%) 10 ml .ROUTE .STK-MED ONE Stop: 01/13/18 18:01 Diphenhydramine HCl (Benadryl) 25 mg IVPUSH Q6H PRN PRN Reason: Pruritis Ephedrine Sulfate (Ephedrine Sulfate) 5 mg IVPUSH ASDIRECTED PRN PRN Reason: Hypotension Fentanyl (Sublimaze) 100 mcg EPIDUR ONETIME PRN PRN Reason: Pain Last Admin: 01/13/18 14:11 Dose: 100 mcg Fentanyl/Bupivacaine HCl (Fentanyl/Bupivacaine/Ns 2 Mcg-0.125% 100 Ml) 100 ml EPIDUR ASDIRECTED [facility] Last Admin: 01/13/18 14:12 Dose: 100 ml Lactated Ringer's (Ringers, Lactated) 1,000 mls @ 100 mls/hr IV ASDIRECTED [facility] Last Admin: 01/13/18 14:26 Dose: 100 mls/hr Oxytocin/Lactated Ringer's (Pitocin In Lr 10 Units/1,000 Ml) 10 unit in 1,000 mls @ 12 mls/hr IV TITRATE [facility]; Protocol Last Titration: 01/13/18 12:00 Dose: 4 munits/min, 24 mls/hr Lidocaine HCl (Xylocaine 1%) 10 ml INJECT ONETIME ONE Stop: 01/13/18 12:01 Last Admin: 01/13/18 23:26 Dose: Not Given Misoprostol (Cytotec) 400 mcg PO Q4H [facility] Stop: 01/13/18 23:36 Last Admin: 01/13/18 23:39 Dose: 400 mcg Nalbuphine HCl (Nubain) 10 mg IVPUSH Q2H PRN PRN Reason: Pain (moderate 4-6) Ondansetron HCl (Zofran) 4 mg IVPUSH Q4H PRN PRN Reason: Nausea/Vomiting Ondansetron HCl (Zofran) 4 mg IVPUSH ONETIME PRN PRN Reason: Nausea/Vomiting Sodium Chloride (Saline Flush) 10 ml FLUSH ASDIRECTED PRN PRN Reason: Keep Vein Open
[2018-01-15] MEDS: Prenatal Multivitamin with Calcium/Folic Acid/Iron Tab PO SCH (10:16)
== END 2018-01-15 12:39 | disposition home or self-care (01) | DRG 560 ==
LOC: UNDOADMOB 07:01 → JD.OB 07:01 → OBSVTOIN 16:50 → JD.OB 16:50
PROVIDERS: ADMIT Obstetrics & Gynecology; ATTEND Obstetrics & Gynecology
PROC: 10E0XZZ Delivery of Products of Conception, External Approach (ICD-10-PCS; principal; 2018-01-13)
PROC: 6A550ZT Pheresis of Cord Blood Stem Cells, Single (ICD-10-PCS; 2018-01-13)
PROC: 10907ZC Drainage of Amniotic Fluid, Therapeutic from Products of Conception, Via Natural or Artificial Opening (ICD-10-PCS; 2018-01-13)
PROC: 00HU33Z Insertion of Infusion Device into Spinal Canal, Percutaneous Approach (ICD-10-PCS; 2018-01-13)
PROC: 3E0R3BZ Introduction of Anesthetic Agent into Spinal Canal, Percutaneous Approach (ICD-10-PCS; 2018-01-13)
DX: O32.8XX0 Maternal care for other malpresentation of fetus, not applicable or unspecified (principal); Z3A.40 40 weeks gestation of pregnancy; Z37.0 Single live birth; O63.1 Prolonged second stage (of labor); O26.893 Other specified pregnancy related conditions, third trimester; Z67.41 Type O blood, Rh negative; Z88.0 Allergy status to penicillin
CPT/HCPCS: 36415; 36430; 59025; 59409; 85025; 85027; 85461; 86850; 86900; 86901; A9270-GY; J2590; J2790; J3010; J7120

== ENCOUNTER 2020-08-24 07:35 | Inpatient (IN) | payer BC ==
[~2020-08-24 07:35] MED LIST: Bupivacaine 0.25% 10 ML SDV ONE; ePHEDrine Sulfate/0.9% NaCl/Pf 25 MG/5 ML SYRINGE IV ONE
[2020-08-24] MEDS ORDERED: ePHEDrine 50 MG/ML SDV IVPUSH PRN (08:04)
[2020-08-24] MEDS ORDERED: diphenhydrAMINE 50 MG/ML SDV IVPUSH PRN (08:04)
[2020-08-24] MEDS ORDERED: Bupivacaine/fentaNYL/NS 100 ML Bag EPIDUR PRN (08:04)
[2020-08-24] MEDS ORDERED: Lactated Ringers 1,000 ML ONE ×5 (08:13→18:24)
[2020-08-24] MEDS: Lactated Ringers 1,000 ML IV SCH ×2 (08:22→12:58)
[2020-08-24] MEDS ORDERED: Calcium Carbonate 500 MG Tab.Chew PO PRN (08:27)
[2020-08-24] MEDS ORDERED: Ondansetron 4 MG/2 ML SDV IVPUSH PRN (08:27)
[2020-08-24] MEDS ORDERED: Sodium Chloride 0.9% 10 ML Syringe FLUSH PRN (08:27)
[2020-08-24] MEDS ORDERED: Nalbuphine 10 MG/ML Syringe IVPUSH PRN (08:27)
[2020-08-24] MEDS ORDERED: Oxytocin/Lactated Ringers 10 UNIT/1,000 ML BAG IV SCH ×2 (08:30)
[2020-08-24] MEDS: fentaNYL 100 MCG/2 ML SDV EPIDUR PRN ×2 (12:25→12:26)
--- NOTE | 2020-08-24 12:57 | PCM.PREANE ---
Preanesthetic Assessment - Procedure Proposed Procedure: epidural - Anesthesia/Transfusion/Family Hx Anesthesia History: Prior Anesthesia Without Reaction Family History of Anesthesia Reaction: No Transfusion History: No Prior Transfusion(s) - Review of Systems General: Fatigue Pulmonary: No Symptoms Cardiovascular: No Symptoms Gastrointestinal: Abdominal Pain (labor) Neurological: No Symptoms Other: Reports: None - Physical Assessment Vital Signs: Last Vital Signs Temp 37.4 C 08/24/20 07:58 Pulse 87 08/24/20 07:58 Resp 18 08/24/20 07:58 BP 101/73 08/24/20 07:58 Pulse Ox 99 08/24/20 07:58 Height: 1.57 m Weight: 73.936 kg ASA Class: 2 Mental Status: Alert & Oriented x3 Airway Class: Mallampati = 1 Dentition: Reports: Normal Dentition Thyro-Mental Finger Breadths: 3 Mouth Opening Finger Breadths: 3 ROM/Head Extension: Full Lungs: Clear to Auscultation, Normal Respiratory Effort Cardiovascular: Regular Rate, Regular Rhythm - Lab Values: Laboratory Last Values WBC 7.44 K/mm3 (3.98-10.04) 08/24/20 08:50 RBC 4.03 M/mm3 (3.98-5.22) 08/24/20 08:50 Hgb 12.3 gm/dl (11.2-15.7) 08/24/20 08:50 Hct 37.4 % (34.1-44.9) 08/24/20 08:50 MCV 92.8 fl (79.4-94.8) 08/24/20 08:50 MCH 30.5 pg (25.6-32.2) 08/24/20 08:50 MCHC 32.9 g/dl (32.2-35.5) 08/24/20 08:50 RDW Std Deviation 43.9 fL (36.4-46.3) 08/24/20 08:50 Plt Count 190 K/mm3 (182-369) 08/24/20 08:50 MPV 9.6 fl (9.4-12.3) 08/24/20 08:50 Neut % (Auto) 67.0 % (34.0-71.1) 08/24/20 08:50 Lymph % (Auto) 23.7 % (19.3-51.7) 08/24/20 08:50 [place] % (Auto) 7.7 % (4.7-12.5) 08/24/20 08:50 Eos % (Auto) 1.1 (0.7-5.8) 08/24/20 08:50 Baso % (Auto) 0.1 % (0.1-1.2) 08/24/20 08:50 Neut # (Auto) 4.99 K/mm3 (1.56-6.13) 08/24/20 08:50 Lymph # (Auto) 1.76 K/mm3 (1.18-3.74) 08/24/20 08:50 [place] # (Auto) 0.57 K/mm3 (0.24-0.36) H 08/24/20 08:50 Eos # (Auto) 0.08 K/mm3 (0.04-0.36) 08/24/20 08:50 Baso # (Auto) 0.01 K/mm3 (0.01-0.08) 08/24/20 08:50 SARS-CoV-2 RNA (CHRIS) Negative (NEGATIVE) 08/24/20 08:03 Blood Type O NEGATIVE 08/24/20 08:50 Gel Antibody Screen Negative 08/24/20 08:50 - Allergies Allergies/Adverse Reactions: Allergies Allergy/AdvReac Type Severity Reaction Status Date / Time Penicillins Allergy Rash Verified 09/21/15 14:07 - Anesthesia Plan Pre-Op Medication Ordered: None - Acknowledgements Anesthesia Type Planned: Epidural Pt an Appropriate Candidate for the Planned Anesthesia: Yes Alternatives and Risks of Anesthesia Discussed w Pt/Guardian: Yes Pt/Guardian Understands and Agrees with Anesthesia Plan: Yes PreAnesthesia Questionnaire - Past Health History Medical/Surgical History: Denies Medical/Surgical History Gastrointestinal History: Reports: GERD [employer]ICE [employer]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 BUSINESS DEVELOPMENT History: Reports: Endocrine/Metabolic History: Reports: Hypothyroidism - Infectious Disease History Infectious Disease History: Reports: None - Past Surgical History HEENT Surgical History: Reports: Oral Surgery Endocrine Surgical History: Reports: None - SUBSTANCE USE Tobacco Use Status *Q: Never Tobacco User Second Hand Smoke Exposure: No Recreational Drug Use History: No - HOME MEDS Home Medications: Home Meds Ferrous Sulfate [Slow Fe] 1 tab PO DAILY 01/13/18 [History] No.116/Iron/Folic/Dha [Expecta Combo Pack] 1 each PO DAILY 01/13/18 [History] Acetaminophen [Tylenol] 650 mg PO Q6H PRN tablet 01/15/18 [Rx] Docusate Sodium [Colace] 100 mg PO BID PRN cap 01/15/18 [Rx] Levothyroxine 75 mcg PO ACBREAKFAST 08/24/20 [History] - CURRENT (IN HOUSE) MEDS Current Meds: Current Medications Calcium Carbonate/Glycine (Tums) 1,000 mg PO Q2H PRN PRN Reason: Indigestion Diphenhydramine HCl (Benadryl) 25 mg IVPUSH Q6H PRN PRN Reason: pruritis Ephedrine Sulfate (Ephedrine Sulfate) 5 mg IVPUSH ASDIRECTED PRN PRN Reason: Hypotension Fentanyl (Sublimaze) 100 mcg EPIDUR Q3H PRN PRN Reason: Pain Last Admin: 08/24/20 12:26 Dose: 100 mcg Documented by: Fentanyl/Bupivacaine HCl (Fentanyl/Bupivacaine/Ns 2 Mcg-0.125% 100 Ml) 100 ml EPIDUR ASDIRECTED PRN PRN Reason: Pain Last Admin: 08/24/20 12:26 Dose: 100 ml Documented by: Lactated Ringer's (Ringers, Lactated) 1,000 mls @ 100 mls/hr IV ASDIRECTED [facility] Last Admin: 08/24/20 12:50 Dose: 999 mls/hr Documented by: Oxytocin/Lactated Ringer's (Pitocin In Lr 10 Units/1,000 Ml) 10 unit in 1,000 mls @ 12 mls/hr IV TITRATE [facility]; Protocol Oxytocin/Lactated Ringer's (Pitocin In Lr 10 Units/1,000 Ml) 10 unit in 1,000 mls @ 100 mls/hr IV .CONTINUOUS [facility] Nalbuphine HCl (Nubain) 10 mg IVPUSH Q2H PRN PRN Reason: Pain Ondansetron HCl (Zofran) 4 mg IVPUSH Q4H PRN PRN Reason: Nausea/Vomiting Sodium Chloride (Saline Flush) 10 ml FLUSH ASDIRECTED PRN PRN Reason: Keep Vein Open Discontinued Medications Lactated Ringer's (Ringers, Lactated) Confirm Administered Dose 1,000 mls @ as directed .ROUTE .STK-MED ONE Stop: 08/24/20 08:14 Last Admin: 08/24/20 08:22 Dose: 100 mls/hr Documented by:
[2020-08-24] MEDS ORDERED: Lidocaine 2% with EPINEPHrine 1:200,000 20 ML SDV ONE (14:37)
--- NOTE | 2020-08-24 14:40 | PCM.SN.2 ---
- Free Text/Narrative Note: Delivery note: Jena is a 35-year-old now para 3-0-0-3 female who was admitted on the a.m. of 08/24/2020 at 40-3/7 weeks gestational age ASHANTI of 08/21/2020 for induction of labor. Underwent induction of labor with AROM. She had been noted to be pascale upon admission to the hospital every 3 to 5 minutesmild in nature. For rest with the AROM.. She had an unremarkable course of labor. Was used for labor analgesia. Progression of labor was very normal and patient pushed for approximately 1/2 hour. She delivered at 1353 hrs. on 08/24/2020. Baby delivered in a direct occiput anterior position. No concerns were noted. Baby weighed 8 pounds 1 ounces, was male infant, Apgars of 8 and 9. A length of 21 inches. No lacerations are noted. Delivery Pitocin was started at 500 cc/h to facilitate increase in uterine tone and decrease likelihood of bleeding. Patient had a history of hemorrhage with her last . Was placed on mom's abdomen and nose mouth were bulb suctioned. Cord was allowed to pulsate for approximately 3 minutes and was clamped x2 and cut by the baby's father Musa. Cord was obtained. The umbilical cord had 3 vessels. Placenta appeared to be adherent. After 30 minutes of conservative management and attempt was made to manually remove the placenta but only part of it was removed and there appeared to be an adherent portion in the anterior, fundal area on the right side. Patient had an epidural in place evaluation and attempt at evacuation of the placenta was well-tolerated by the patient. Because of the difficulty of the removal, decision made to proceed to exam and removal under anesthesia. This was discussed in detail with patient and her . They appear to understand, wish to proceed and signed a consent. Consent is obtained for curettage and removal of the placenta and other procedures as indicated in treatment of a retained placenta.
[2020-08-24] MEDS ORDERED: Clindamycin Phosphate 900 MG/6 ML SDV ONE (14:41)
[2020-08-24] MEDS ORDERED: Gentamicin 40 MG/ML 2 ML Vial ONE ×2 (14:41→14:42)
[2020-08-24] MEDS ORDERED: Sodium Chloride 0.9% 200 ML ONE (14:46)
[2020-08-24] MEDS ORDERED: Oxytocin 10 Units/1 ML SDV ONE ×2 (14:49→14:51)
[2020-08-24] MEDS ORDERED: Methylergonovine 0.2 MG/1 ML Amp ONE (15:07)
--- NOTE | 2020-08-24 15:26 | PCM.POSTAN ---
POST ANESTHESIA ASSESSMENT - MENTAL STATUS Mental Status: Alert, Oriented - VITAL SIGNS Vital Signs: Last Vital Signs Temp 37.4 C 08/24/20 14:26 Pulse 67 08/24/20 14:26 Resp 18 08/24/20 07:58 BP 113/65 08/24/20 14:26 Pulse Ox 97 08/24/20 14:26 - RESPIRATORY Respiratory Status: Respiratory Rate WNL, Airway Patent, O2 Saturation Stable - CARDIOVASCULAR CV Status: Pulse Rate WNL, Blood Pressure Stable - GASTROINTESTINAL GI Status: No Symptoms - PAIN Pain Score: 0 - POST OP HYDRATION Hydration Status: Adequate & Stable - OBSERVATIONS Free Text/Narrative:: no anesthesia complications noted
--- NOTE | 2020-08-24 15:33 | PCM.OPNOTE ---
- General Post-Op/Procedure Note Date of Surgery/Procedure: 08/24/20 Operative Procedure(s): Suction curettage, removal of retained placenta Findings: Placental fragments were found to be retained in the upper portion of the uterus. The fragments appeared to be adherent anteriorly and fundally inside the uterus. There seem to be a band in the lower uterine segment which restricted access to the upper segment of the uterus. Pre Op Diagnosis: Retained placenta Post-Op Diagnosis: Same Anesthesia Technique: Epidural Primary Surgeon: Aidan Garner Pathology: Retained placenta Fluid Replacement, Intraop: 1,500 EBL in mLs: 350 Complications: None Condition: Good Free Text/Narrative:: Intake & Output 08/24/20 08/24/20 08/24/20 06:59 14:59 22:59 Intake Total 1120 Balance 1120 Surgery duration: 19 minutes Procedure: Decision was made to proceed with exam placenta under anesthesia patient would tolerate this well. Tell the patient and her concerning potential for difficulty removing a significantly adherent placenta possible need for occluding hysterectomy for follow-up D&C at a later date. Consent was signed. Part of the placenta delivered in the delivery room with assistance. At that time the placenta appeared to be moderately adhered to the anterior fundal area of the uterus. The patient was taken to the operating room and epidural, which was already in place, was bolstered to anesthetic effect. Patient was given IV clindamycin 900 mg and gentamicin 5 mg/kg preprocedure as recommended by pharmacy for infection prophylaxis. After patient was found to be adequately anesthetized she was p laced in dorsolithotomy position prepped in the usual fashion. Weighted speculum is placed in the vagina. Anterior lip of the cervix was grasped with an Allis clamp. A 16 mm suction curette was then introduced and a small amount of blood and tissue was removed. A large "banjo" curette was then introduced into the uterine cavity and in a serial circular fashion the upper portion of the uterus was evaluated, tissue including placental membranes and portions of placental cotyledons were removed. A vigorous attempt was made to ensure complete removal of all placental fragments however this could not be entirely guaranteed. Circumferential evaluation of the endometrial cavity with the curette showed no apparent evidence of remaining placenta fragments. Neuro point 2 mg of Methergine was given IM during the procedure to facilitate contraction of the uterus. Patient was receiving Pitocin IV for the same purpose. Throughout the procedure the uterus appeared to be very well contracted. At the end of the procedure the weighted speculum was removed and the cervix was released from the Allis clamp. She was returned turned to a supine position. She will be observed closely to ensure no post operative bleeding occurs. Cytotec 400 mg will be given orally every 6 hours basis to facilitate uterine tone and decrease likelihood of bleeding. Consideration will be given to follow-up with ultrasound postoperatively to ensure removal of all fragments of the placenta. Condition: Good
[2020-08-24] MEDS ORDERED: Ibuprofen 600 MG Tab PO PRN (16:18)
[2020-08-24] MEDS ORDERED: Acetaminophen 325 MG Tab PO PRN (16:18)
[2020-08-24] MEDS ORDERED: Docusate Sodium 100 MG Cap PO PRN (16:18)
[2020-08-24] MEDS ORDERED: Ferrous Sulfate 324 MG Tab.EC PO SCH (17:00)
[2020-08-24] MEDS ORDERED: Misoprostol 200 MCG Tab PO SCH (17:00)
--- NOTE | 2020-08-24 17:22 | PCM.LDHP ---
L&D History of Present Illness - General Date of Service: 08/24/20 Admit Problem/Dx: Admission Diagnosis/Problem Admission Diagnosis/Problem 08/24/20 17:12 Jena is a 35-year-old 3 para 2-0-0-2 female who was admitted on the a.m. of 08/24/2020 at 40-3/7 weeks gestational age ASHANTI of 08/21/2020 for induction of labor. Source of Information: Patient History Limitations: Reports: No Limitations - History of Present Illness Introduction:: Jena is a 35-year-old 3 para 2-0-0-2 female who was admitted on the a.m. of 08/24/2020 at 40-3/7 weeks gestational age ASHANTI of 08/21/2020 for induction of labor. She will undergo artificial rupture membranes induction with Pitocin augmentation as indicated. Procedure, risk, benefits, alternatives of care including allowing for natural onset of labor all discussed with patient. She appears understand and wishes to proceed. ENTRY REP history: 3 para 2-0-0-2. ASHANTI 08/21/2020 as determined by a early ultrasound. Supported by 2 other ultrasounds at 13 and 0 and 20-6/7 weeks. Patient had menarche at approximately age 14. Cycles q. 30 days. Last menstrual period was unknown. Past deliveries include the followin. Male infant born 09/26/2012 at 41 weeks gestational age after 12 hours of labor. . 7 pounds 3 ounces. Child's name is Jesse 2. Male born 01/13/2017 at 40-4/7 weeks gestational age via . 8 pounds 1 ounce. bleeding noted after that. course. Patient was first seen for at less than 10 weeks. Ultrasound was performed. First visit was at 12-3/7 weeks. She was seen on a regular basis. During the course of her care weight gain was from 145 up to 162 pounds for 17 pound increase. Vital signs have been stable. Fundal height growth has been appropriate. Patient had her flu shot on 07/17/2020. Tdap was given on 06/28/2020. She is rubella immune. Hepatitis B's immunization was given in 1999. Patient is group B strep negative. Patient declined genetic testing. She is hypothyroid on levothyroxine and clinically euthyroid. This is been followed throughout the . She plans to breast-feed. She is Rh- and has received RhoGam during the . Tdap was given on 06/28/2020. Laboratory testing in shows blood to be O- with a negative antibody screen. Her hemoglobin at first medical visit was 14.1 g/dL and platelets were 217,000. She is rubella immune. RPR is nonreactive. Urine culture shows mixed myrna at the first visit. Hepatitis B surface antigen was negative. HIV was negative. Patient second trimester labs showed hemoglobin 12.3 g/dL and platelets 222,000. Diabetic screen was 95. Her first TSH and free T4 were within normal limits. TSH on 06/15/2020 was normal at 0.567. T4 on the same date was 1.11. RPR on 05/18/2020 was nonreactive. Group B strep screen was negative. Allergies 1. Penicillin which causes hives medications: 1. Levothyroxine sodium 75 mcg daily 2. Valacyclovir as needed for cold sores 3. Calcium 600 mg/day 4. Vitamin D3 50 mcg/day 2000 international units. 5. DH a omega-3 100 mg capsules daily 6. vitamins daily Past medical history: 1. Hypothyroidism on replacement medicine clinically euthyroid 2. Rh- blood status 3. Patient had IVF extraction 2019 4. 2015 had abnormal Pap smear consisting of ASCUS changes 5. Infertility of unknown etiology. Past surgical history: Unremarkable Family history: Parents are alive and well. One sibling is alive and well. Jeramie th grandparents are secondary to Alzheimer's disease. Maternal grandfather has a history of dementia and stroke. Paternal grandfather is alive and well. No bleeding, clotting, , anesthesia or asthma problems noted in the palate. Social history: Patient is . She works at [employer]. She is a college graduate. She does not use any significant also alcohol, drugs or tobacco. is Mus[place]. She and her and family live in [place], [place]. Review of systems: Review of systems: In general patient has no complaints. Been active. Skin: Negative Lungs: No infectious symptoms or shortness of breath Cardiovascular: No chest pain or exercise intolerance Breasts: No lumps, changes in size, pain, dimpling, discharge or axillary or supraclavicular concerns. GI: Negative : Negative Musculoskeletal: Negative Neurological: Negative In general the patient is well-developed, well-nourished, pleasant female of stated age in no acute distress. Skin is warm dry without lesions. HEENT, neck and back within normal limits. Lungs are clear with good breath sounds in all lung ribera. Cardiovascular exam shows regular and rhythm without murmurs. Breast exam: Deferred having been done at time of first visit and found to be normal. It is not repeated at this time. Abdomen is protuberant with . Fundal height on last evaluation clinic was 38 cm. Genital per bimanual shows cervix to be 3 cm dilated, soft, -2 station, anteriormid, proximal 90% effaced. Extremities and neurological exam are grossly within normal limits. Pain Score: 0 - Related Data Allergies/Adverse Reactions: Allergies Allergy/AdvReac Type Severity Reaction Status Date / Time Penicillins Allergy Rash Verified 09/21/15 14:07 Home Medications: Home Meds Ferrous Sulfate [Slow Fe] 1 tab PO DAILY 01/13/18 [History] No.116/Iron/Folic/Dha [Expecta Combo Pack] 1 each PO DAILY 01/13/18 [History] Acetaminophen [Tylenol] 650 mg PO Q6H PRN tablet 01/15/18 [Rx] Docusate Sodium [Colace] 100 mg PO BID PRN cap 01/15/18 [Rx] Levothyroxine 75 mcg PO ACBREAKFAST 08/24/20 [History] Past Medical History - Past Health History Medical/Surgical History: Denies Medical/Surgical History Gastrointestinal History: Reports: GERD 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: Endocrine/Metabolic History: Reports: Hypothyroidism - Infectious Disease History Infectious Disease History: Reports: None - Past Surgical History HEENT Surgical History: Reports: Oral Surgery Endocrine Surgical History: Reports: None Social & Family History - Family History Family Medical History: No Pertinent Family History - Tobacco Use Tobacco Use Status *Q: Never Tobacco User Second Hand Smoke Exposure: No - Caffeine Use Caffeine Use: Reports: None - Recreational Drug Use Recreational Drug Use: No H&P Review of Systems - Review of Systems: Review Of Systems: See Below L&D Exam - Exam Exam: See Below - Vital Signs Vital Signs: Last Vital Signs Temp 37.1 C 08/24/20 15:45 Pulse 58 L 08/24/20 15:45 Resp 13 08/24/20 15:45 BP 96/59 L 08/24/20 15:45 Pulse Ox 96 08/24/20 15:45 Weight: 73.936 kg - Patient Data Lab Results Last 24 hrs: Laboratory Results - last 24 hr 08/24/20 08/24/20 08/24/20 Range/Units 08:03 08:50 08:50 WBC 7.44 (3.98-10.04) K/mm3 RBC 4.03 (3.98-5.22) M/mm3 Hgb 12.3 (11.2-15.7) gm/dl Hct 37.4 (34.1-44.9) % MCV 92.8 (79.4-94.8) fl MCH 30.5 (25.6-32.2) pg MCHC 32.9 (32.2-35.5) g/dl RDW Std Deviation 43.9 (36.4-46.3) fL Plt Count 190 (182-369) K/mm3 MPV 9.6 (9.4-12.3) fl Neut % (Auto) 67.0 (34.0-71.1) % Lymph % (Auto) 23.7 (19.3-51.7) % [place] % (Auto) 7.7 (4.7-12.5) % Eos % (Auto) 1.1 (0.7-5.8) Baso % (Auto) 0.1 (0.1-1.2) % Neut # (Auto) 4.99 (1.56-6.13) K/mm3 Lymph # (Auto) 1.76 (1.18-3.74) K/mm3 [place] # (Auto) 0.57 H (0.24-0.36) K/mm3 Eos # (Auto) 0.08 (0.04-0.36) K/mm3 Baso # (Auto) 0.01 (0.01-0.08) K/mm3 SARS-CoV-2 RNA (CHRIS) Negative (NEGATIVE) Blood Type O NEGATIVE Gel Antibody Screen Negative Result Diagrams: 08/24/20 08:50 Problem List Initiated/Reviewed/Updated: Yes Orders Last 24hrs: Active Orders 24 hr Category Date Time Status Activity as Tolerated [RC] PER UNIT ROUTINE Care 08/24/20 16:18 Active Communication Order [RC] ASDIRECTED Care 08/24/20 15:25 Active Cooling Warming Measures [RC] ASDIRECTED Care 08/24/20 15:25 Active Notify Provider [RC] ASDIRECTED Care 08/24/20 15:25 Active Oxygen Therapy [RC] ASDIRECTED Care 08/24/20 15:25 Active Pulse Oximetry [RC] ASDIRECTED Care 08/24/20 15:25 Active Urinary Catheter Insertion [Insert Urinary Catheter] [ Care 08/24/20 16:45 Ordered OM.PC] Q24H Vital Signs [RC] ASDIRECTED Care 08/24/20 16:18 Active Vital Signs [RC] Q15M Care 08/24/20 15:25 Active Regular Diet [DIET] Diet 08/24/20 Dinner Active Pelvis Non OB Comp [US] Routine Exams 08/24/20 17:09 Ordered Pelvis Non OB Ltd [US] Routine Exams 08/25/20 07:00 Ordered CBC WITH AUTO DIFF [HEME] AM Lab 08/25/20 05:11 Ordered CBC WITH AUTO DIFF [HEME] Stat Lab 08/24/20 17:11 Ordered RAPID PLASMA REAGIN,RPR [CHEM] Routine Lab 08/24/20 08:50 Received Acetaminophen [TylenoL] Med 08/24/20 16:18 Active 650 mg PO Q4H PRN Docusate Sodium [Colace] Med 08/24/20 16:18 Active 100 mg PO BID PRN Ferrous Sulfate Med 08/24/20 17:00 Active 324 mg PO BIDMEALS Ibuprofen [Motrin] Med 08/24/20 16:18 Active 600 mg PO Q4H PRN Levothyroxine Med 08/25/20 06:00 Active 75 mcg PO ACBREAKFAST Vit with Ca/FA/Iron [ Plus Iron] Med 08/25/20 09:00 Active 1 each PO DAILY miSOPROStoL [Cytotec] Med 08/24/20 17:00 Active 400 mcg PO Q6H Assess Lochia [WOMSER] Per Unit Routine Oth 08/24/20 16:18 Ordered Assess Uterine Involution [WOMSER] Per Unit Routine Oth 08/24/20 16:18 Ordered Breast Pump [WOMSER] Per Unit Routine Oth 08/24/20 16:18 Ordered Heat Therapy [OM.PC] PRN Oth 08/24/20 16:18 Ordered Heat Therapy [OM.PC] PRN Oth 08/25/20 16:18 Ordered Ice Therapy [OM.PC] Per Unit Routine Ot 08/24/20 16:18 Ordered Medication Administration Instruction [OM.PC] Routine Ot 08/24/20 16:18 Or dered Perineal Care [OM.PC] Per Unit Routine Ot 08/24/20 16:18 Ordered Sitz Bath [OM.PC] Per Unit Routine Ot 08/24/20 16:18 Ordered Transfuse Red Blood Cells [COMM] Stat Ot 08/24/20 17:05 Ordered Resuscitation Status Routine Resus Stat 08/24/20 08:27 Ordered Medication Orders Acetaminophen (Tylenol) 650 mg PO Q4H PRN PRN Reason: mild pain or fever Docusate Sodium (Colace) 100 mg PO BID PRN PRN Reason: Constipation Ferrous Sulfate (Ferrous Sulfate) 324 mg PO BIDMEALS LITZY Ibuprofen (Motrin) 600 mg PO Q4H PRN PRN Reason: Mild pain or fever Levothyroxine Sodium (Levothyroxine) 75 mcg PO ACBREAKFAST [facility] Misoprostol (Cytotec) 400 mcg PO Q6H LITZY Prenat Multivit/[place]/Iron/Folic Ac ( Plus Iron) 1 each PO DAILY [facility] Assessment/Plan Comment:: 1. 40-3/7 IUP admitted for induction of labor. 2. Rh-candidate for Rh immunoglobulin therapy if indicated 3. Desiring epidural in labor 4. Plans to breast-feed 5. Hypothyroid on levothyroxine and clinically euthyroid. Laboratory testing has been euthyroid. 6. Group B strep negative 7. Patient has received her flu vaccination, her Tdap. She received RhoGam during the course of Plan: 1. AROM induction of labor. Pitocin augmentation if necessary 2. Neuro as needed 3. Anticipate 4. Continue levothyroxine in the . 5. Routine labor care 6. CBC, RPR and COVID-19 testing upon admission.
[2020-08-24] MEDS ORDERED: Propofol 200 MG/20 ML SDV ONE (17:42)
[2020-08-24] MEDS ORDERED: Ondansetron 4 MG/2 ML SDV ONE (17:42)
[2020-08-24] MEDS ORDERED: Succinylcholine/Sod PF 100 MG/5 ML SYRINGE IV ONE (17:42)
[2020-08-24] MEDS ORDERED: Midazolam 1 MG/ML 2 ML SDV ONE (17:42)
[2020-08-24] MEDS ORDERED: Lactated Ringers 1,000 ML IV ONE (17:42)
[2020-08-24] MEDS ORDERED: Lidocaine 1% 4 ML ONE (17:42)
[2020-08-24] MEDS ORDERED: fentaNYL 250 MCG/5 ML SDV ONE (17:42)
--- NOTE | 2020-08-24 17:44 | PCM.SN.2 ---
- Free Text/Narrative Note: Operative follow-up note: I was called to see the patient concerning some bleeding that she had after surgery. Uterus was somewhat flaccid and patient passed several clots. She was given Cytotec orally. Pulse increased and blood pressure dropped for short period time. Both then rebounded back to normal shortly thereafter. Indwelling bladder catheter was placed in approximately 500 cc of urine was removed. Transabdominal ultrasound is performed and shows residual placental tissue high up in the uterus on the right side. This measures 11.7 x 8.7 x 12.6 cm. There does not appear to be any free fluid outside the uterus. There appears to be a narrowing of the uterine cavity at about the internal os. Some blood noted in the cervical area also. Discussions held with patient and her concerning return to surgery to attempt to evacuate the uterus under ultrasound guidance. Also discussed with her is a possibility of adherence of the placenta and possible need to do more aggressive intervention such as total abdominal hysterectomy with bilateral salpingectomy. She appears to understand. Consent is signed. Assessment: 1. Status post normal spontaneous vaginal delivery with retained placenta high in the right fundal area of the uterus. 2. Narrowing of the lower uterine segment, possibly a uterine band as potential etiology of this placental retention. Cannot entirely rule out ingrowth of placenta into the uterine wall. Plan: 1. Return to surgery for evacuation of placenta under ultrasound guidance. 2. Crossmatch 2 units packed red blood cells 3. Stat CBC 4. Has received antibiotics consisting of clindamycin and gentamicin approximately 2 hours ago. Will wait with additional antibiotics at this time.
[2020-08-24] MEDS ORDERED: Ketorolac 30 MG/ML SDV ONE (19:31)
--- NOTE | 2020-08-24 19:44 | PCM.POSTAN ---
POST ANESTHESIA ASSESSMENT - MENTAL STATUS Mental Status: Alert, Oriented - VITAL SIGNS Vital Signs: Last Vital Signs Temp 37.2 C 08/24/20 16:40 Pulse 75 08/24/20 17:47 Resp 16 08/24/20 16:40 BP 98/80 08/24/20 17:17 Pulse Ox 96 08/24/20 17:47 - RESPIRATORY Respiratory Status: Respiratory Rate WNL, Airway Patent, O2 Saturation Stable - CARDIOVASCULAR CV Status: Pulse Rate WNL, Blood Pressure Stable - GASTROINTESTINAL GI Status: No Symptoms - PAIN Pain Score: 0 - POST OP HYDRATION Hydration Status: Adequate & Stable - OBSERVATIONS Free Text/Narrative:: no anesthesia complications noted
--- NOTE | 2020-08-24 21:36 | PCM.OPNOTE ---
- General Post-Op/Procedure Note Date of Surgery/Procedure: 08/24/20 Operative Procedure(s): Suction curettage and removal of retained placenta under ultrasound guidance Findings: Portion of placenta was retained measuring approximately 12 x 8 x 11 cm. Pre Op Diagnosis: Retained placenta Post-Op Diagnosis: Same Anesthesia Technique: General ET Tube Primary Surgeon: Aidan Garner Secondary Surgeon: Mahin Lay Anesthesia Provider: Wallace Chavez Reason Ed Transporter Was Necessary: Retraction, assistance, patient safety, quality of care. Pathology: Retained placenta Fluid Replacement, Intraop: 200 Output, Urine Amount: 750 EBL in mLs: 500 Drain/Tube Comments:: Indwelling bladder catheter Complications: None Condition: Good Free Text/Narrative:: Intake & Output 08/24/20 08/24/20 08/24/20 06:59 14:59 22:59 Intake Total 1120 3220 Output Total 2890 Balance 1120 330 Surgery duration: 72 minutes Procedure: Discussion was held with patient as to the procedure of exam under anesthesia, curettage and removal of the retained placenta, possible further additional surgery possibly total abdominal hysterectomy with bilateral salpingectomy. Patient appeared to understand, wish to proceed and signed a consent. Patient is taken the operating room cleared. She received clindamycin within the 2 hours preceding that and had received gentamicin at 5 mg/kg at the time of the previous D&C. She then was given general endotracheal anesthesia. She is placed in dorsal lithotomy position and prepped and draped in usual fashion. The weighted speculum placed vagina cervix grasped with single-tooth tenaculum and exam showed a bandlike adhesion at lower uterine segment allowing only 2 2 finger breath evaluation. Placenta could be palpated but could not be removed with digital access. Various attempts using different instrumentation were then undertaken under ultrasound guidance. These included a 16mm suction curette. Polyp forceps, ring forceps etc. Finally a large loop biopsy instrument was used to tease the placenta towards the uterine os and deliver it. Ultrasound confirmed an empty uterus thereafter. Patient had no significant bleeding at the end of the procedure. At this point the cervix was released later sections was removed and patient was returned to supine position. She tolerated procedure well left the operating room in satisfactory condition.
[2020-08-24] MEDS: Misoprostol 200 MCG Tab PO SCH (22:54)
[2020-08-24] MEDS ORDERED: Acetaminophen/oxyCODONE 325-5 MG Tab PO PRN ×2 (23:14→23:15)
[2020-08-24] MEDS: Clindamycin Phosphate in D5W 900 MG in Premix Bag 1 BAG IV SCH ×2 (23:52)
[2020-08-25] MEDS: Ibuprofen 600 MG Tab PO PRN ×3 (02:01→19:04)
[2020-08-25] MEDS: Acetaminophen 325 MG Tab PO PRN (05:00)
[2020-08-25] MEDS: Misoprostol 200 MCG Tab PO SCH ×3 (05:01→16:16)
[2020-08-25] MEDS ORDERED: Lactated Ringers 500 ML IV ONE (05:36)
[2020-08-25] MEDS: Levothyroxine 75 MCG Tab PO SCH (05:47)
[2020-08-25] MEDS ORDERED: Levothyroxine 75 MCG Tab PO SCH (06:00)
[2020-08-25] MEDS: Ferrous Sulfate 324 MG Tab.EC PO SCH ×2 (07:58→16:15)
[2020-08-25] MEDS: Prenatal Multivitamin with Calcium/Folic Acid/Iron Tab PO SCH (07:59)
[2020-08-25] MEDS: Clindamycin Phosphate in D5W 900 MG in Premix Bag 1 BAG IV SCH ×2 (08:00)
--- NOTE | 2020-08-25 08:41 | US ---
PROCEDURE INFORMATION: Exam: US GUIDE INTRAOPERATIVE Exam date and time: 08/24/2020 6:05 PM Age: 35 years old Clinical indication: Abnormal findings; Patient HX: Rpoc, pelvic ultrasound done today and read by vrad TECHNIQUE: Imaging protocol: US GUIDE INTRAOPERATIVE COMPARISON: No relevant prior studies available. FINDINGS/IMPRESSION: Patient is status post D and C. In some of the provided images, a surgical instrument is appreciated within the uterine cavity. The previously identified heterogeneous masslike material within the endometrium is no longer visualized, most likely removed with the procedure. No acute complications are otherwise noted. Follow-up is advised. Thank you for allowing us to participate in the care of your patient. Dictated and Authenticated by: Ibrahima Hendrix MD 08/24/2020 9:16 PM Central Time ([place] & Tre) [facility]OSPITALOmaira
--- NOTE | 2020-08-25 08:44 | US ---
PROCEDURE INFORMATION: Exam: US Nonobstetric Pelvis; Complete Exam date and time: 08/24/2020 5:25 PM Age: 35 years old Clinical indication: Other: Post bleeding; Prior surgery; Surgery date: Post-operative (0-2 days); Surgery type: Patient gave and had D and C earlier today. Ordering physician present during ultrasound TECHNIQUE: Imaging protocol: Transabdominal pelvic nonobstetric ultrasound. Complete exam. Real time ultrasound with image documentation. COMPARISON: US OB 2 Or 3 Tri Sgl 1st Gest 04/07/2020 3:48 PM FINDINGS: Uterus/cervix: There is heterogeneous nonvascular material appreciated within the endocervical canal. This is most compatible with hemorrhagic products. The uterus is anteverted. Heterogeneous masslike material within the endometrium measuring 11.7 cm x 8.7 cm x 12.6 cm. There is no significant vascularity noted within this region. The uterine parenchyma appears unremarkable. Right adnexa: The right ovary appears unremarkable and measures 3.3 x 1.6 x 2 cm. Normal right ovarian vascularity is appreciated. Left adnexa: The left ovary is unremarkable and measures 3 x 1.8 x 1.7 cm. Normal left ovarian vascularity is appreciated. Intraperitoneal space: See "Uterus/cervix" finding. Urinary bladder: Not imaged. IMPRESSION: Endometrial and endocervical findings are most likely related to hemorrhagic products. I would recommend close follow-up with beta HCG and ultrasound as retained products of conception are difficult to completely exclude although felt this likely at this time Thank you for allowing us to participate in the care of your patient. Dictated and Authenticated by: Ibrahima Hendrix MD 08/24/2020 7:11 PM Central Time (US & Tre) [facility]HEL
[2020-08-25] MEDS ORDERED: Prenatal Multivitamin with Calcium/Folic Acid/Iron Tab PO SCH (09:00)
--- NOTE | 2020-08-25 11:43 | PCM.SN.2 ---
- Free Text/Narrative Note: /postoperative day #1 status post normal spontaneous vaginal delivery and exam and removal of retained placenta done on 08/24/2020 note: Patient is doing well in the period other than feeling somewhat lightheaded to the point of near syncope when up. Most probably related to her anemia secondary to bleeding at the time of delivery and removal of her retained placenta.. Minimal lochia, voiding well, ambulated without problems. Nursing without concerns. Patient is afebrile, vital signs are stable. Blood pressures have been lower than usual but patient reports she runs low. Her pulses have been in the 80s and 70s. Abdomen is flat, soft, uterus is below the umbilicus and is firm and tender with palpation.. Legs are nontender. Assessment: 1. /postoperative day #1recovery going well considering EBL at the time of delivery and EBL related to retained placenta. 2. Symptomatic to the point where patient is unable to take care of day-to-day activities as it regards the baby, nursing etc.. Plan: 1. We will proceed with r transfusing the 2 units of packed red blood cells that have been crossmatched for her as of last evening. Crossmatch was done in response to rapid bleeding that she had as it pertained to her retained placenta. We will obtain a CBC after the second unit is infused. 2. Otherwise doing well. Suspect patient will be able to be discharged home within the next 24-48 hours.
[2020-08-25] MEDS ORDERED: Sodium Chloride 0.9% 500 ML IV ONE (11:56)
[2020-08-25] MEDS ORDERED: Misoprostol 200 MCG Tab PO ONE ×2 (20:00)
[2020-08-25] MEDS: Docusate Sodium 100 MG Cap PO PRN (20:26)
[2020-08-26] MEDS: Ibuprofen 600 MG Tab PO PRN ×4 (02:05→20:10)
[2020-08-26] MEDS: Ferrous Sulfate 324 MG Tab.EC PO SCH ×2 (06:44→18:22)
[2020-08-26] MEDS: Levothyroxine 75 MCG Tab PO SCH (06:45)
[2020-08-26] MEDS: Docusate Sodium 100 MG Cap PO PRN (11:01)
[2020-08-26] MEDS: Prenatal Multivitamin with Calcium/Folic Acid/Iron Tab PO SCH (11:03)
--- NOTE | 2020-08-26 11:28 | PCM.SN.2 ---
- Free Text/Narrative Note: Post Progress Note PPD #2 Subjective: Doing okay overall today. Ambulating with 1 person assist and moving slowly when she is up and walking. Lochia minimal. Voiding large amounts of urine without difficulty after removal of her catheter. Tolerating regular diet without nausea or vomiting. Pain overall controlled with oral medications. Reports that she is having moderate to severe amounts of soreness in her lower abdomen which makes it difficult for her to stand up fully erect. Breast- feeding with minimal difficulty. Denies any fevers or chills. Denies any lightheadedness or dizziness after receiving 2 units PRBCs. Objective: Vitals: Vital Signs - 24 hr 08/25/20 08/25/20 08/25/20 12:19 12:31 12:36 Temperature 37.3 C 37.4 C 37.4 C Pulse, 62 59 L Peripheral Pulse, 66 Peripheral [ Pulse Oximetry] Respiratory 15 14 14 Rate Blood Pressure 87/39 L 97/77 Blood Pressure 97/77 [Upper] O2 Sat by Pulse 99 97 98 Oximetry 08/25/20 08/25/20 08/25/20 14:00 14:06 14:20 Temperature 36.7 C 36.7 C 37.0 C Pulse, 64 Peripheral Pulse, 65 65 Peripheral [ Pulse Oximetry] Respiratory 14 14 14 Rate Blood Pressure 107/78 Blood Pressure 107/78 84/46 L [Upper] O2 Sat by Pulse 97 Oximetry 08/25/20 08/25/20 08/25/20 14:21 15:41 20:24 Temperature 37.0 C 36.9 C 36.9 C Pulse, 66 66 68 Peripheral Pulse, Peripheral [ Pulse Oximetry] Respiratory 14 15 14 Rate Blood Pressure 84/46 L 92/54 L 105/63 Blood Pressure [Upper] O2 Sat by Pulse 97 96 96 Oximetry 08/26/20 02:08 Temperature 36.6 C Pulse, 65 Peripheral Pulse, Peripheral [ Pulse Oximetry] Respiratory 15 Rate Blood Pressure 103/53 L Blood Pressure [Upper] O2 Sat by Pulse 97 Oximetry Physical Exam General: Alert and oriented, no acute distress Lungs: Clear to auscultation bilaterally Heart: Regular rate and rhythm Abdomen: Soft, minimal appropriate tenderness, non-distended, fundus midline, nontender, and at the umbilicus Extremities: No edema Laboratory Results - last 24 hr 11/10/0108/25/20 08/26/20 Range/Units 08:50 16:53 06:37 WBC 10.17 H 9.72 (3.98-10.04) K/mm3 RBC 3.20 L 3.29 L (3.98-5.22) M/mm3 Hgb 9.7 L 9.9 L (11.2-15.7) gm/dl Hct 29.9 L 30.9 L (34.1-44.9) % MCV 93.4 93.9 (79.4-94.8) fl MCH 30.3 30.1 (25.6-32.2) pg MCHC 32.4 32.0 L (32.2-35.5) g/dl RDW Std Deviation 45.1 47.7 H (36.4-46.3) fL Plt Count 160 L 167 L (182-369) K/mm3 MPV 9.6 9.5 (9.4-12.3) fl Neut % (Auto) 69.4 70.6 (34.0-71.1) % Lymph % (Auto) 22.0 20.5 (19.3-51.7) % [place] % (Auto) 7.5 6.7 (4.7-12.5) % Eos % (Auto) 0.6 L 1.7 (0.7-5.8) Baso % (Auto) 0.2 0.1 (0.1-1.2) % Neut # (Auto) 7.06 H 6.86 H (1.56-6.13) K/mm3 Lymph # (Auto) 2.24 1.99 (1.18-3.74) K/mm3 [place] # (Auto) 0.76 H 0.65 H (0.24-0.36) K/mm3 Eos # (Auto) 0.06 0.17 (0.04-0.36) K/mm3 Baso # (Auto) 0.02 0.01 (0.01-0.08) K/mm3 Blood Type O NEGATIVE Gel Antibody Screen Negative Screen 1 ros/5 flds - neg RhIG Candidate? Yes Crossmatch See Detail ASSESSMENT: 35-year-old female -0-0-3 s/p normal vaginal delivery PPD #2, complicated by retained placenta with suction D&C and sharp curettage x2 on PPD #0 with hemorrhage and transfusion of 2 units PRBCs on PPD #1, Rh- status with an with B+ blood and received RhoGam on PPD #0, IVF and hypothyroidism PLAN: Doing okay overall. Still requiring 1 person assist for transfers and ambulation. No anemia symptoms at this time. Denies any lightheadedness or dizziness. Hemoglobin this morning was 9.9 after 2 units PRBCs on PPD #1 Breast-feeding with minimal difficulty. Assist as needed Lochia minimal. Continue to monitor for appropriate lochia. Continue routine care Patient with O- blood and with B+ blood. Patient received RhoGam on PPD #0 Anticipate discharge home tomorrow after increased therapy to try to reduce assistance to standby assist or no visitor use assistant needed Mahin Lay MD 11:27 AM 06/26/2020
[2020-08-26] MEDS: Acetaminophen 325 MG Tab PO PRN ×3 (13:00→23:30)
[2020-08-27] MEDS: Ibuprofen 600 MG Tab PO PRN ×2 (03:34→09:39)
[2020-08-27] MEDS: Docusate Sodium 100 MG Cap PO PRN ×2 (03:35→09:39)
[2020-08-27] MEDS: Acetaminophen 325 MG Tab PO PRN (06:12)
[2020-08-27] MEDS: Levothyroxine 75 MCG Tab PO SCH (06:13)
[2020-08-27] MEDS: Ferrous Sulfate 324 MG Tab.EC PO SCH (06:13)
--- NOTE | 2020-08-27 07:27 | PCM.SN.2 ---
- Free Text/Narrative Note: Post Progress Note PPD #3 Subjective: Patient reports that she is improving since yesterday. Reports that she has been able to get up and walk around independently although she is moving somewhat slowly. She reports that she does still feel some soreness in her lower abdomen and uterus when she tries to stand up fully erect. Lochia minimal and denies passing any blood clots. Voiding without difficulty. Reports that she has not had a bowel movement but is passing flatus at this time. Tolerating regular diet without nausea or vomiting. Pain overall controlled with oral medications and improving since yesterday. Patient also using heating pad that was helping with her abdominal pain. Breast-feeding with minimal difficulty. Denies any fevers or chills. Denies any lightheadedness or dizziness with ambulation or activities of daily living. Reports that she took a tub bath that helped with her back pain. Objective: Vitals: Vital Signs - 24 hr 08/26/20 08/26/20 08/26/20 09:18 18:21 20:15 Temperature 37.0 C 36.7 C 36.6 C Pulse, 67 65 64 Peripheral Respiratory 14 14 15 Rate Blood Pressure 93/71 100/67 100/66 O2 Sat by Pulse 93 L 98 98 Oximetry 08/27/20 03:38 Temperature 36.4 C Pulse, 60 Peripheral Respiratory Rate Blood Pressure 96/61 O2 Sat by Pulse 98 Oximetry Physical Exam General: Alert and oriented, no acute distress Lungs: Clear to auscultation bilaterally Heart: Regular rate and rhythm Abdomen: Soft, minimal appropriate tenderness, non-distended, fundus midline, nontender, and 1 fingerbreadth below the umbilicus Extremities: No edema ASSESSMENT: 35-year-old female -0-0-3 s/p normal vaginal delivery PPD #3 and POD #3, complicated by retained placenta with suction D&C and sharp curettage x2 on PPD #0 with hemorrhage and transfusion of 2 units PRBCs on PPD #1, Rh- st atus with an with B+ blood and received RhoGam on PPD #0, IVF and hypothyroidism PLAN: Doing well overall today Patient reports significant improvement in ambulation and pain since PPD #2. Reports that she is able to ambulate independently and denies any lightheadedness or dizziness with ambulation. Continues to be somewhat sore with ambulation but reports that this pain is tolerable. No anemia symptoms at this time. Denies any lightheadedness or dizziness. Breast-feeding with minimal difficulty. Assist as needed Lochia minimal. Continue to monitor for appropriate lochia. Continue routine care Recommend for patient to use stool softener or fiber supplement to help with constipation. Patient may also use milk of magnesia as needed for constipation. Patient with O- blood and with B+ blood. Patient received RhoGam on PPD #0 Discharge home today Mahin Lay MD 7:22 AM 08/27/2020
[2020-08-27] MEDS ORDERED: Magnesium Hydroxide 400 MG/5 ML Susp 30 ML Cup PO ONE (07:28)
--- NOTE | 2020-08-27 08:02 | PCM.DCSUM1 ---
Discharge Summary - Hospital Course Free Text/Narrative:: Delivery note: Jena is a 35-year-old now para 3-0-0-3 female who was admitted on the a.m. of 08/24/2020 at 40-3/7 weeks gestational age ASHANTI of 08/21/2020 for induction of labor. Underwent induction of labor with AROM. She had been noted to be pascale upon admission to the hospital every 3 to 5 minutesmild in nature. For rest with the AROM.. She had an unremarkable course of labor. Was used for labor analgesia. Progression of labor was very normal and patient pushed for approximately 1/2 hour. She delivered at 1353 hrs. on 08/24/2020. Baby delivered in a direct occiput anterior position. No concerns were noted. Baby weighed 8 pounds 1 ounces, was male infant, Apgars of 8 and 9. A length of 21 inches. No lacerations are noted. Delivery Pitocin was started at 500 cc/h to facilitate increase in uterine tone and decrease likelihood of bleeding. Patient had a history of hemorrhage with her last . Was placed on mom's abdomen and nose mouth were bulb suctioned. Cord was allowed to pulsate for approximately 3 minutes and was clamped x2 and cut by the baby's father Musa. Cord was obtained. The umbilical cord had 3 vessels. Placenta appeared to be adherent. After 30 minutes of conservative management and attempt was made to manually remove the placenta but only part of it was removed and there appeared to be an adherent portion in the anterior, fundal area on the right side. Patient had an epidural in place evaluation and attempt at evacuation of the placenta was well-tolerated by the patient. Because of the difficulty of the removal, decision made to proceed to exam and removal under anesthesia. This was discussed in detail with patient and her . They appear to understand, wish to proceed and signed a consent. Consent is obtained for curettage and removal of the placenta and other procedures as indicated in treatment of a retained placenta. Diagnosis: Stroke: No - Discharge Data Discharge Date: 08/27/20 Discharge Disposition: Home, Self-Care 01 Condition: Good - Referral to Home Health Primary Care Physician: Aidan Garner MD - Discharge Diagnosis/Problem(s) (1) Retained placenta parts or membranes SNOMED Code(s): 396788939 ICD Code: O73.1 - RETAINED PORTIONS OF PLACENTA AND MEMBRANES, W/O HEMORRHAGE Status: Acute Current Visit: Yes (2) 40 weeks gestation of SNOMED Code(s): 54407478 ICD Code: Z3A.40 - 40 WEEKS GESTATION OF Status: Acute Current Visit: No (3) conceived through in vitro fertilization SNOMED Code(s): 71926426 ICD Code: O09.819 - SUPRVSN OF PREG RSLT FROM ASSISTED REPRODCTV TECH, UNSP TRI Status: Acute Current Visit: No (4) Rh negative state in antepartum period SNOMED Code(s): 489993524 ICD Code: O09.899 - SUPERVISION OF OTHER HIGH RISK PREGNANCIES, UNSP TRIMESTER; Z67.91 - UNSPECIFIED BLOOD TYPE, RH NEGATIVE Status: Acute Current Visit: No (5) Vaginal delivery SNOMED Code(s): 315028268 ICD Code: O80 - ENCOUNTER FOR FULL-TERM UNCOMPLICATED DELIVERY Status: Acute Current Visit: No - Patient Summary/Data Operative Procedure(s) Performed: Suction curettage and removal of retained placenta under ultrasound guidance Complications: Retained placenta after delivery requiring removal in OR Consults: None Hospital Course: Jena Juarez was admitted for induction of labor. On admission her cervix was dilated to 3 cm. She was GBS negative. She had artificial rupture membranes with return of clear fluid for induction. She was given an epidural for anesthesia. She progressed to complete and began pushing. On 08/24/2020 she had a normal vaginal delivery of a live male infant at 13:53. Apgars of 8 and 9. Weight of 3670 g (8 pounds 1.5 ounces). Her course was complicated by retained placenta which was attempted to be removed manually in labor and delivery but was unsuccessful. Patient was taken back to operating room in an attempt was made for removal of the placenta with use of 16mm suction curette as well as a banjo curette. She was given Methergine to help with contraction of the uterus. Operative report states that placental membranes and placental cotyledons were removed. After her surgery patient continued to have bleeding that was approximately 2 to 3 hours after delivery with ultrasound that was done that showed persistence of placenta within the uterine cavity. Patient had Miner catheter placed to fully drain the bladder to ensure that this was not bleeding to uterine atony. Patient was taken back to the operating room for additional dilation and curettage. Patient was placed under general anesthesia for this procedure. Patient had suction and sharp curettage of the uterus with removal of a large portion of retained placenta done under ultrasound guidance. After the portion of the retained placenta was removed ultrasound did not show any evidence of any additional retained placenta. Please see operative reports for full details. In the morning of PPD #1 she was noted to have a hemoglobin of 8.4 and was symptomatic from this blood loss with lightheadedness and dizziness when she was standing and ambulating. Patient was transfused with 2 units PRBCs on PPD #1. Her pain was moderately well controlled on PPD #1 and #2 with significant lower abdominal soreness and cramping. Patient was continued on Cytotec 400 mcg buccally every 4 hours for 24 hours after her procedure and she was having minimal lochia after her procedures. She was tolerating a regular diet and voiding normally. During the day of PPD #1 and #2 patient was having significant difficulty with use of 1 person assist for ambulation. She was only able to minimally ambulate to the restroom as needed. Patient was concerned that she would not be able to continue to care for herself as she would need to at home due to this increased need for assistance. Patient continued to improve throughout PPD #2 and in the morning of PPD #3 she was able to ambulate independently and more easily. She was breast-feeding with minimal difficulty. She was afebrile and her hematocrit was 30.9 on PPD #2 after she had received 2 units PRBCs on PPD #1. She desired to be discharged home on the morning of PPD #3. Her blood type is O- and infant has B+ blood type. Patient received RhoGam on PPD #0. - Patient Instructions Diet: Regular Diet as Tolerated Activity: Apply Ice, As Tolerated Activity, Other: Nothing in the vagina for 6 weeks Driving: May Drive Today Showering/Bathing: May Shower Notify Provider of: Fever, Increased Pain, Swelling and Redness, Drainage, Nausea and/or Vomiting Other/Special Instructions: Please contact your physician's office if you have heavy vaginal bleeding enough to soak a pad in less than an hour for several hours. Monitor for any signs of an infection in the breasts with severe pain or redness of the breast. - Discharge Plan *PRESCRIPTION DRUG MONITORING PROGRAM REVIEWED*: Not Applicable *COPY OF PRESCRIPTION DRUG MONITORING REPORT IN PATIENT FRANK: Not Applicable Home Medications: Home Meds No.116/Iron/Folic/Dha [Expecta Combo Pack] 1 each PO DAILY 01/13/18 [History] Acetaminophen [Tylenol] 650 mg PO Q6H PRN tablet 01/15/18 [Rx] Docusate Sodium [Colace] 100 mg PO BID PRN cap 01/15/18 [Rx] Levothyroxine 75 mcg PO ACBREAKFAST 08/24/20 [History] Ferrous Sulfate 324 mg PO BIDMEALS tab.ec 08/27/20 [Rx] Ibuprofen [Motrin] 600 mg PO Q6H PRN tablet 08/27/20 [Rx] Patient Handouts: Care of a Perineal Tear, Care After Vaginal Delivery Referrals: Aidan Garner MD [Primary Care Provider] - (Follow-up in 2 weeks for routine visit or earlier as needed.) - Discharge Summary/Plan Comment DC Time >30 min.: No - Patient Data Vitals - Most Recent: Last Vital Signs Temp 36.4 C 08/27/20 03:38 Pulse 60 08/27/20 03:38 Resp 15 08/26/20 20:15 BP 96/61 08/27/20 03:38 Pulse Ox 98 08/27/20 03:38 Weight - Most Recent: 73.936 kg I&O - Last 24 hours: Intake & Output 08/26/20 08/27/20 08/27/20 22:59 06:59 14:59 Intake Total 420 Balance 420 Med Orders - Current: Current Medications Acetaminophen (Tylenol) 650 mg PO Q4H PRN PRN Reason: mild pain or fever Last Admin: 08/27/20 06:12 Dose: 650 mg Documented by: Docusate Sodium (Colace) 100 mg PO BID PRN PRN Reason: Constipation Last Admin: 08/27/20 03:35 Dose: 100 mg Documented by: Ferrous Sulfate (Ferrous Sulfate) 324 mg PO BIDMEALS LITZY Last Admin: 08/27/20 06:13 Dose: 324 mg Documented by: Ibuprofen (Motrin) 600 mg PO Q4H PRN PRN Reason: Mild pain or fever Last Admin: 08/27/20 03:34 Dose: 600 mg Documented by: Levothyroxine Sodium (Levothyroxine) 75 mcg PO ACBREAKFAST [facility] Last Admin: 08/27/20 06:13 Dose: 75 mcg Documented by: Oxycodone/Acetaminophen (Percocet 325-5 Mg) 1 tab PO Q4H PRN PRN Reason: Pain (moderate 4-6) Oxycodone/Acetaminophen (Percocet 325-5 Mg) 2 tab PO Q4H PRN PRN Reason: Pain (severe 7-10) Prenat Multivit/Phelps/Iron/Folic Ac ( Plus Iron) 1 each PO DAILY [facility] Last Admin: 08/26/20 11:03 Dose: 1 each Documented by: Discontinued Medications Acetaminophen (Tylenol) 650 mg PO Q4H PRN PRN Reason: mild pain or fever Last Admin: 08/24/20 21:24 Dose: 650 mg Documented by: Bupivacaine HCl (Sensorcaine-Mpf 0.25%) 10 ml .ROUTE .STK-MED ONE Stop: 08/24/20 00:01 Calcium Carbonate/Glycine (Tums) 1,000 mg PO Q2H PRN PRN Reason: Indigestion Clindamycin Phosphate (Cleocin) Confirm Administered Dose 900 mg .ROUTE .STK-MED ONE Stop: 08/24/20 14:42 Diphenhydramine HCl (Benadryl) 25 mg IVPUSH Q6H PRN PRN Reason: pruritis Docusate Sodium (Colace) 100 mg PO BID PRN PRN Reason: Constipation Ephedrine Sulfate (Ephedrine Sulfate) 5 mg IVPUSH ASDIRECTED PRN PRN Reason: Hypotension Ephedrine Sulfate (Ephedrine 25 Mg/5 Ml Syringe) 25 mg IV .STK-MED ONE Stop: 08/24/20 00:01 Fentanyl (Sublimaze) 100 mcg EPIDUR Q3H PRN PRN Reason: Pain Last Admin: 08/24/20 12:26 Dose: 100 mcg Documented by: Fentanyl (Sublimaze) Confirm Administered Dose 250 mcg .ROUTE .STK-MED ONE Stop: 08/24/20 17:43 Fentanyl/Bupivacaine HCl (Fentanyl/Bupivacaine/Ns 2 Mcg-0.125% 100 Ml) 100 ml EPIDUR ASDIRECTED PRN PRN Reason: Pain Last Admin: 08/24/20 12:26 Dose: 100 ml Documented by: Ferrous Sulfate (Ferrous Sulfate) 324 mg PO BIDMEALS [facility] Last Admin: 08/24/20 21:17 Dose: Not Given Documented by: Gentamicin Sulfate (Gentamicin) Confirm Administered Dose 80 mg .ROUTE .[facility] ONE Stop: 08/24/20 14:42 Gentamicin Sulfate (Gentamicin) Confirm Administered Dose 320 mg .ROUTE .[facility] ONE Stop: 08/24/20 14:43 Lactated Ringer's (Ringers, Lactated) Confirm Administered Dose 1,000 mls @ as directed .ROUTE .[facility] ONE Stop: 08/24/20 08:14 Last Admin: 08/24/20 08:22 Dose: 100 mls/hr Documented by: Lactated Ringer's (Ringers, Lactated) 1,000 mls @ 100 mls/hr IV ASDIRECTED [facility] Last Admin: 08/24/20 12:58 Dose: 100 mls/hr Documented by: Oxytocin/Lactated Ringer's (Pitocin In Lr 10 Units/1,000 Ml) 10 unit in 1,000 mls @ 12 mls/hr IV TITRATE LITZY; Protocol Oxytocin/Lactated Ringer's (Pitocin In Lr 10 Units/1,000 Ml) 10 unit in 1,000 mls @ 100 mls/hr IV .CONTINUOUS LITZY Sodium Chloride (Normal Saline) Confirm Administered Dose 200 mls @ as directed .ROUTE .[facility] ONE Stop: 08/24/20 14:47 Lactated Ringer's (Ringers, Lactated) Confirm Administered Dose 1,000 mls @ as directed .ROUTE .[facility] ONE Stop: 08/24/20 15:05 Lactated Ringer's (Ringers, Lactated) Confirm Administered Dose 1,000 mls @ as directed .ROUTE .[facility] ONE Stop: 08/24/20 17:29 Last Admin: 08/24/20 21:17 Dose: Not Given Documented by: Lactated Ringer's (Ringers, Lactated) 1,000 mls @ 999 mls/hr IV .BOLUS ONE Stop: 08/24/20 18:42 Last Admin: 08/24/20 17:00 Dose: 999 mls/hr Documented by: Lidocaine HCl (Xylocaine-Mpf 1%) Confirm Administered Dose 4 mls @ as directed .ROUTE .[facility]-MED ONE Stop: 08/24/20 17:43 Lactated Ringer's (Ringers, Lactated) Confirm Administered Dose 1,000 mls @ as directed .ROUTE .STK-MED ONE Stop: 08/24/20 18:12 Lactated Ringer's (Ringers, Lactated) Confirm Administered Dose 1,000 mls @ as directed .ROUTE .STK-MED ONE Stop: 08/24/20 18:25 Clindamycin Phosphate 900 mg/ (Premix) 50 mls @ 100 mls/hr IV Q8H LITZY Stop: 08/25/20 08:29 Last Admin: 08/25/20 08:00 Dose: 100 mls/hr Documented by: Lactated Ringer's (Ringers, Lactated) 500 mls @ 500 mls/hr IV .BOLUS ONE Stop: 08/25/20 06:35 Last Admin: 08/25/20 05:46 Dose: 500 mls/hr Documented by: Sodium Chloride (Normal Saline) 500 mls @ 125 mls/hr IV ONETIME ONE Stop: 08/25/20 15:55 Last Admin: 08/25/20 12:00 Dose: 125 mls/hr Documented by: Ibuprofen (Motrin) 600 mg PO Q4H PRN PRN Reason: Mild pain or fever Ketorolac Tromethamine (Toradol) Confirm Administered Dose 30 mg .ROUTE .STK-MED ONE Stop: 08/24/20 19:32 Levothyroxine Sodium (Levothyroxine) 75 mcg PO ACBREAKFAST [facility] Lidocaine/Epinephrine (Xylocaine-Mpf 2%-Epi 1:200,000) Confirm Administered Dose 20 ml .ROUTE .STK-MED ONE Stop: 08/24/20 14:38 Magnesium Hydroxide (Milk Of Magnesia) 30 ml PO ONETIME ONE Stop: 08/27/20 07:29 Methylergonovine Maleate (Methergine) Confirm Administered Dose 0.2 mg .ROUTE .STK-MED ONE Stop: 08/24/20 15:08 Midazolam HCl (Versed 1 Mg/Ml) Confirm Administered Dose 2 mg .ROUTE .STK-MED ONE Stop: 08/24/20 17:43 Miscellaneous Medication (Phenylephrine 1 Mg/10 Ml-Ns) Confirm Administered Dose 1 mg .ROUTE .STK-MED ONE Stop: 08/24/20 18:27 Misoprostol (Cytotec) 400 mcg PO Q6H [facility] Last Admin: 08/24/20 16:45 Dose: 400 mcg Documented by: Misoprostol (Cytotec) 400 mcg PO Q6H LITZY Last Admin: 08/25/20 16:16 Dose: 400 mcg Documented by: Misoprostol (Cytotec) 200 mcg PO ONETIME ONE Stop: 08/25/20 20:01 Misoprostol (Cytotec) 400 mcg PO ONETIME ONE Stop: 08/25/20 20:01 Last Admin: 08/25/20 20:27 Dose: 400 mcg Documented by: Nalbuphine HCl (Nubain) 10 mg IVPUSH Q2H PRN PRN Reason: Pain Ondansetron HCl (Zofran) 4 mg IVPUSH Q4H PRN PRN Reason: Nausea/Vomiting Ondansetron HCl (Zofran) Confirm Administered Dose 4 mg .ROUTE .STK-MED ONE Stop: 08/24/20 17:43 Oxytocin (Pitocin) Confirm Administered Dose 10 unit .ROUTE .STK-MED ONE Stop: 08/24/20 14:50 Oxytocin (Pitocin) Confirm Administered Dose 10 unit .ROUTE .STK-MED ONE Stop: 08/24/20 14:52 Prenat Multivit/[employer]/Iron/Folic Ac ( Plus Iron) 1 each PO DAILY LITZY Propofol (Diprivan 20 Ml) Confirm Administered Dose 200 mg .ROUTE .STK-MED ONE Stop: 08/24/20 17:43 Sodium Chloride (Saline Flush) 10 ml FLUSH ASDIRECTED PRN PRN Reason: Keep Vein Open
[2020-08-27] MEDS: Prenatal Multivitamin with Calcium/Folic Acid/Iron Tab PO SCH (09:39)
== END 2020-08-27 10:30 | disposition home or self-care (01) | DRG 541 ==
LOC: JD.OB 07:35 → OBSVTOIN 13:53 → JD.OB 13:54
PROVIDERS: ADMIT Obstetrics & Gynecology; ATTEND Obstetrics & Gynecology
PROC: 10E0XZZ Delivery of Products of Conception, External Approach (ICD-10-PCS; principal; 2020-08-24)
PROC: 10907ZC Drainage of Amniotic Fluid, Therapeutic from Products of Conception, Via Natural or Artificial Opening (ICD-10-PCS; 2020-08-24)
PROC: 3E0R3BZ Introduction of Anesthetic Agent into Spinal Canal, Percutaneous Approach (ICD-10-PCS; 2020-08-24)
PROC: 30233N1 Transfusion of Nonautologous Red Blood Cells into Peripheral Vein, Percutaneous Approach (ICD-10-PCS; 2020-08-24)
PROC: 10D17ZZ Extraction of Products of Conception, Retained, Via Natural or Artificial Opening (ICD-10-PCS; 2020-08-24)
PROC: 3E0234Z Introduction of Serum, Toxoid and Vaccine into Muscle, Percutaneous Approach (ICD-10-PCS; 2020-08-25)
DX: O48.0 Post-term pregnancy (principal); O99.284 Endocrine, nutritional and metabolic diseases complicating childbirth; O73.1 Retained portions of placenta and membranes, without hemorrhage; E03.9 Hypothyroidism, unspecified; O72.1 Other immediate postpartum hemorrhage; O26.893 Other specified pregnancy related conditions, third trimester; Z3A.40 40 weeks gestation of pregnancy; Z37.0 Single live birth; Z88.0 Allergy status to penicillin; Z79.890 Hormone replacement therapy; Z67.41 Type O blood, Rh negative
CPT/HCPCS: 00940; 01967; 36415; 36430; 51701; 51702; 59025; 59409; 76856; 76856-26; 76998; 76998-26; 85025; 85027; 85461; 86592; 86850; 86900; 86901; 86922; A9270-GY; J0171; J0330; J1580; J1885; J2001; J2210; J2250; J2370; J2405; J2590; J2704; J2790; J3010; J3490; J7040; J7120; P9016; U0002

== ENCOUNTER → 2022-11-19 | Day surgery (SDC) | payer BC ==
[~2022-11-19] MED LIST changes: +Acetaminophen/oxyCODONE 325-5 MG Tab PO PRN; -Bupivacaine 0.25% 10 ML SDV ONE; +Bupivacaine 0.5% 30 ML SDV ONE; +Dexamethasone 4 MG/ML 5 ML MDV ONE; +HYDROmorphone 0.5 MG/0.5 ML Syringe IVPUSH PRN; +Ibuprofen 600 MG Tab PO PRN; +Ketorolac 30 MG/ML SDV ONE; +Lactated Ringers 1,000 ML ONE; +Levothyroxine 88 MCG Tab PO SCH; +Midazolam 1 MG/ML 2 ML SDV ONE; +Neostigmine Methylsulfate 10 MG/10 ML MDV ONE; +Ondansetron 4 MG/2 ML SDV IVPUSH PRN; +Ondansetron 4 MG/2 ML SDV ONE; +Propofol 200 MG/20 ML SDV ONE; +Rocuronium 50 MG/5 ML Vial ONE; +Sertraline 50 MG Tab PO SCH; +ceFAZolin 2 GM Vial ONE; +ePHEDrine 50 MG/ML SDV ONE; -ePHEDrine Sulfate/0.9% NaCl/Pf 25 MG/5 ML SYRINGE IV ONE; +fentaNYL 100 MCG/2 ML SDV IVPUSH PRN; +fentaNYL 100 MCG/2 ML SDV ONE
== END | disposition home or self-care (01) ==
LOC: JD.ED 09:13 → JD.SDS 17:40
PROVIDERS: ATTEND Obstetrics & Gynecology
DX: O00.102 Left tubal pregnancy without intrauterine pregnancy (principal); O73.1 Retained portions of placenta and membranes, without hemorrhage; E03.9 Hypothyroidism, unspecified; K21.9 Gastro-esophageal reflux disease without esophagitis; Z88.0 Allergy status to penicillin; Z79.899 Other long term (current) drug therapy; Z79.890 Hormone replacement therapy; Z67.91 Unspecified blood type, Rh negative
CPT/HCPCS: 36415; 58661; 81003; 84702; 85025; 86850; 86900; 86901; 90384; 99284; A9270; J1100; J1885; J2250; J2704; J2710; J3010; J3490; J7120; J0690; J2405; J2790

== ENCOUNTER 2024-02-20 19:01 | Inpatient (IN) | payer BC ==
[~2024-02-20 19:01] MED LIST changes: -Acetaminophen/oxyCODONE 325-5 MG Tab PO PRN; +Bupivacaine 0.25% 10 ML SDV ONE; -Bupivacaine 0.5% 30 ML SDV ONE; -Dexamethasone 4 MG/ML 5 ML MDV ONE; -HYDROmorphone 0.5 MG/0.5 ML Syringe IVPUSH PRN; -Ibuprofen 600 MG Tab PO PRN; -Ketorolac 30 MG/ML SDV ONE; -Lactated Ringers 1,000 ML ONE; -Levothyroxine 88 MCG Tab PO SCH; -Midazolam 1 MG/ML 2 ML SDV ONE; -Neostigmine Methylsulfate 10 MG/10 ML MDV ONE; -Ondansetron 4 MG/2 ML SDV IVPUSH PRN; -Ondansetron 4 MG/2 ML SDV ONE; -Propofol 200 MG/20 ML SDV ONE; -Rocuronium 50 MG/5 ML Vial ONE; -Sertraline 50 MG Tab PO SCH; -ceFAZolin 2 GM Vial ONE; -fentaNYL 100 MCG/2 ML SDV IVPUSH PRN; -fentaNYL 100 MCG/2 ML SDV ONE
[2024-02-20] MEDS ORDERED: Lidocaine 1% 50 ML MDV INJECT PRN (20:28)
[2024-02-20] MEDS ORDERED: Sodium Chloride 0.9% 10 ML Syringe FLUSH PRN (20:28)
[2024-02-20] MEDS ORDERED: Calcium Carbonate 500 MG Tab.Chew PO PRN (20:28)
[2024-02-20] MEDS ORDERED: Ondansetron 4 MG/2 ML SDV IVPUSH PRN (20:28)
[2024-02-20 20:55] LABS: BASOPHILS PERCENT AUTO 0.3 % (0.0-1.0); EOSINOPHILS ABSOLUTE AUTO 0.1 K/mm3 (0.0-0.4); EOSINOPHILS PERCENT AUTO 1.5 % (0.0-6.0); HEMATOCRIT 34.3 % (37.0-47.0); HEMOGLOBIN 11.4 gm/dl (12.0-16.0); IMMATURE GRAN ABSOLUTE AUTO 0.05 K/mm3 (0.00-0.05); IMMATURE GRAN PERCENT AUTO 0.6 % (0.0-0.4); LYMPHOCYTES PERCENT AUTO 23.1 % (24.0-44.0); MEAN CORPUSCULAR HEMOGLOBIN 30.4 pg (28.0-32.0); MEAN CORPUSCULAR HGB CONC 33.2 g/dl (32.0-36.0); MEAN CORPUSCULAR VOLUME 91.5 fl (83.0-99.0); MEAN PLATELET VOLUME 10.4 fl (9.4-12.3); MONOCYTES ABSOLUTE AUTO 0.5 K/mm3 (0.0-0.8); MONOCYTES PERCENT AUTO 5.5 % (0.0-8.0); NEUTROPHILS ABSOLUTE AUTO 6.1 K/mm3 (1.8-7.7); PLATELET COUNT,PLT 176 K/mm3 (150-400); RED BLOOD CELL COUNT 3.75 M/mm3 (4.10-5.30); WHITE BLOOD CELL COUNT,WBC 8.79 K/mm3 (3.9-11.3)
[2024-02-20] MEDS: ceFAZolin 2 GM in Sodium Chloride 0.9% 50 ML IV ONE (21:01)
[2024-02-20] MEDS: Lactated Ringers 1,000 ML IV SCH (21:03)
[2024-02-21] MEDS: Sodium Chloride 0.9% 10 ML Syringe FLUSH SCH (02:32)
[2024-02-21] MEDS: Nalbuphine 10 MG/ML Syringe IVPUSH PRN (03:59)
[2024-02-21] MEDS: ceFAZolin 1 GM in Sodium Chloride 0.9% 100 ML IV SCH (04:26)
[2024-02-21] MEDS ORDERED: ePHEDrine 50 MG/ML SDV IVPUSH PRN (07:21)
[2024-02-21] MEDS ORDERED: diphenhydrAMINE 50 MG/ML SDV IVPUSH PRN (07:21)
[2024-02-21] MEDS: fentaNYL 100 MCG/2 ML SDV EPIDUR PRN (07:44)
[2024-02-21] MEDS: Bupivacaine/fentaNYL/NS 100 ML Bag EPIDUR PRN (07:45)
[2024-02-21] MEDS: Oxytocin/Lactated Ringers 30 UNIT/500 ML BAG IV SCH ×2 (08:29→12:25)
[2024-02-21] MEDS: Sertraline 50 MG Tab PO SCH (09:26)
[2024-02-21] MEDS: Levothyroxine 88 MCG Tab PO SCH (09:26)
[2024-02-21] MEDS ORDERED: Ibuprofen 600 MG Tab PO PRN (14:40)
[2024-02-21] MEDS: Benzocaine/Menthol 20%-0.5% Spray 78 GM Cannister TOP PRN (17:09)
[2024-02-21] MEDS: Witch Hazel Medicated Pads 40/Jar TOP PRN (17:09)
[2024-02-21] MEDS: Acetaminophen 325 MG Tab PO PRN (17:10)
[2024-02-22] MEDS: Docusate Sodium 100 MG Cap PO PRN (08:30)
[2024-02-23] MEDS: Ondansetron 4 MG Tab.DIS PO ONE ×2 (01:25→07:54)
== END 2024-02-23 10:16 | disposition home or self-care (01) | DRG 560 ==
LOC: JD.OBCHECK 19:01 → JD.OB 19:05 → JD.OBCHECK 19:21 → JD.OB 19:22 → OBSVTOIN 02-21 11:21 → JD.OB 02-21 11:22
PROVIDERS: ADMIT Obstetrics & Gynecology; ATTEND Obstetrics & Gynecology
PROC: 10E0XZZ Delivery of Products of Conception, External Approach (ICD-10-PCS; principal; 2024-02-21)
PROC: 10907ZC Drainage of Amniotic Fluid, Therapeutic from Products of Conception, Via Natural or Artificial Opening (ICD-10-PCS; 2024-02-21)
PROC: 3E0R3BZ Introduction of Anesthetic Agent into Spinal Canal, Percutaneous Approach (ICD-10-PCS; 2024-02-21)
PROC: 00HU33Z Insertion of Infusion Device into Spinal Canal, Percutaneous Approach (ICD-10-PCS; 2024-02-21)
DX: O99.284 Endocrine, nutritional and metabolic diseases complicating childbirth (principal); Z37.0 Single live birth; O66.0 Obstructed labor due to shoulder dystocia; E03.9 Hypothyroidism, unspecified; Z3A.39 39 weeks gestation of pregnancy; Z88.0 Allergy status to penicillin; Z98.890 Other specified postprocedural states; Z67.41 Type O blood, Rh negative
CPT/HCPCS: 36415; 51702; 59025; 59409; 85025; 85461; 86592; 86850; 86900; 86901; A9270-GY; J0690; J2300; J2790; J3010; J3490; J7120; J7999